=== PATIENT | male | born 1955 | race Caucasian/White ===

== ENCOUNTER → 2018-11-12 | Outpatient (CLI) | payer OTHER ==
[~2018-11-12] MED LIST: REGADENOSON 0.4 MG/5 ML SYR IV ONE
--- NOTE | 2018-11-13 16:41 | Cardiology Report ---
DATE OF STUDY: November 12, 2018 PROCEDURE INDICATIONS: Chest pain and shortness of breath, abnormal EKG. PROCEDURE PERFORMED: Lexiscan stress test. INTERPRETATION: At rest, heart rate was 60, blood pressure 147/82 after Lexiscan was administered. Heart rate siria to 76 beats per minute. Blood pressure decreased to 138/89. Resting EKG showed normal sinus rhythm with nonspecific repolarization abnormality and poor R-wave progression. After Lexiscan was administered, no significant S/T changes or arrhythmias were observed. Myocardial perfusion reveals a small sized fixed inferior wall and apical inferior segment moderate in severity perfusion defect. Gated images demonstrate mild global impairment of left ventricular systolic function with left ventricular ejection fraction of 48%. CONCLUSIONS 1. Normal hemodynamic response to Lexiscan stress. 2. Normal electrocardiographic response to Lexiscan stress. 3. Abnormal myocardial perfusion with inferior wall nontransmural scar and apical segment nontransmural scar. 4. 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 Job#: [id number] CA
== END ==
LOC: NM 09:17
PROVIDERS: ATTEND Internal Medicine Cardiovascular Disease
DX: R07.9 Chest pain, unspecified (principal); R94.31 Abnormal electrocardiogram [ECG] [EKG]; I50.9 Heart failure, unspecified
CPT/HCPCS: 78452; 93017; A9502; J2785

== ENCOUNTER → 2018-12-03 | Day surgery (SDC) | payer OTHER ==
[2018-11-30 10:56] LABS: BASOPHILS % 0.3 % (0.0-1.0); EOSINOPHILS # (AUTO) 0.3 (0.0-0.4); EOSINOPHILS % 3.3 % (0.0-6.0); HEMATOCRIT 38.5 % (38.2-49.6); HEMOGLOBIN 13.2 g/dL (14.0-18.0); LYMPHOCYTES # (AUTO) 1.9 (1.0-3.2); LYMPHOCYTES % 21.8 % (18.0-39.1); MEAN CORPUSCULAR HEMOGLOBIN 31.6 pg (28-32); MEAN CORPUSCULAR HGB CONC 34.3 g/dL (31-35); MEAN CORPUSCULAR VOLUME 92.1 fL (81-99); MONOCYTES # (AUTO) 0.8 (0.2-0.8); MONOCYTES % 9.1 % (4.4-11.3); NEUTROPHILS # (AUTO) 5.7 (2.1-6.9); NEUTROPHILS % 65.2 % (38.7-80.0); PLATELET COUNT 185 x10e3/uL (140-360); RED BLOOD COUNT 4.18 x10e6/uL (4.3-5.7); RED CELL DISTRIBUTION WIDTH 12.3 % (11.7-14.4)
[2018-11-30 11:06] LABS: INR 0.93; PARTIAL THROMBOPLASTIN TIME 29.9 seconds (23.8-35.5); PROTHROMBIN TIME 13.3 seconds (11.9-14.5)
[2018-11-30 11:13] LABS: ALANINE AMINOTRANSFERASE 24 IU/L (0-55); ALBUMIN 3.4 g/dL (3.5-5.0); ALBUMIN/GLOBULIN RATIO 1.3 (0.8-2.0); ALKALINE PHOSPHATASE 75 IU/L (40-150); BLOOD UREA NITROGEN 7 mg/dL (7-26); BUN/CREATININE RATIO 8 (6-25); CARBON DIOXIDE 31 mmol/L (22-29); CHLORIDE 103 mmol/L (98-107); CHOL/HDL RATIO 2.9 (3.9-4.7); CHOLESTEROL 96 MD/DL (0-199); CREATININE, SERUM 0.92 mg/dL (0.72-1.25); EST GLOMERULAR FILTRATION RATE > 60 ML/MIN (60-); GLUCOSE 97 mg/dL (74-118); HDL CHOLESTEROL 33 MG/DL (40-60); LDL CHOLESTEROL 51 MG/DL (60-130); SODIUM 142 mmol/L (136-145); TRIGLYCERIDES 62 MG/DL (0-149)
[2018-12-03] VITALS (11 sets, daily range): BP systolic 129–167; BP diastolic 71–88
[~2018-12-03] VITALS: Ht 182.9 cm; Wt 115.7 kg
[~2018-12-03] MED LIST changes: +ALBUTEROL0.63 MG/3 NEB; +ALPRAZOLAM1 MG PO; +AMLODIPINE BESYL5 MG PO; +ANORA ELLIPTA INH; +ASPIR 8181 MG PO; +ASPIRIN 325 MG TAB ONE; +CITALOPRAM HBR20 MG PO; +COUGH SYRU100 MG/5 M PO; +FENTANYL CITRATE/PF 100MCG/2 ML INJ ONE; +FUROSEMIDE40 MG PO; +HEPARIN SOD/SOD CHLORIDE 2,000 ML ONE; +IOPAMIDOL 370 MG/ML 200 ML INFUS..BTL INJ ONE; +ISOSORBIDE DINI20 MG PO; +LIDOCAINE HCL 1% LOCAL INJ 20 ML VIAL ONE; +LOSARTAN POTAS100 MG PO; +METOPROLOL TART50 MG PO; +MIDAZOLAM HCL 2 MG/2 ML VIAL ONE; +NORCO 5-325 TA1 EACH PO; +PRAVASTATIN SOD20 MG PO; +RANITIDINE HCL150 MG PO; -REGADENOSON 0.4 MG/5 ML SYR IV ONE; +SODIUM CHLORIDE 0.9% 1000ML 1,000 ML ONE; +TRAZODONE HCL50 MG PO; +VENTOLIN HFA18 GM INH
--- OUTSIDE RECORDS SUMMARY | 2018-12-03 10:17 | XMS REPORT | CCD ---
Author Author Auto Generated Organization [facility] Address Unknown Phone Unavailable Care Team Providers Care Waiter/Waitress Room Service Name Role Phone AlkaJayjay shah Wilberto CP Allergies, Adverse Reactions, Alerts Substance Reaction Status NKDA Active Problem List Condition Effective Dates Status Angina Resolved Depression Resolved HTN - Hypertension Resolved Smoker Active Medications Medication Instructions Start Date End Date Status morphine Sulfate 2 mg, 1 mL, Route: IVP, Drug form: 10/02/2013 10/04/2013 Discontinued INJ, Q6H, Dosing Weight 95.455, kg, PRN Chest Pain, Start date: 10/02/13 11:40:00, Stop date: 11/01/13 11:39:00(Same as:MORPhine Sulfate) hydrALAZINE 10 mg, 0.5 mL, Route: IV, Drug 10/02/2013 10/04/2013 Discontinued form: INJ, Q4H, Dosing Weight 95.455, kg, PRN Hypertension, Start date: 10/02/13 11:40:00, Duration: 30 day, Stop date: 11/01/13 11:39:00(Same as: Apresoline) metoprolol 5 mg/5 ml 2.5 mg, 2.5 mL, Route: IV, Drug 10/02/2013 10/04/2013 Discontinued INJ form: INJ, Q2H, Dosing Weight 95.455, kg, PRN Tachycardia, Start date: 10/02/13 11:40:00, Duration: 30 day, Stop date: 11/01/13 11:39:00(Same as: Lopressor) aspirin 325 mg 325 mg, 1 tab, Route: PO, Drug 10/03/2013 10/03/2013 Discontinued tablet, enteric form: ECTAB, Daily, Dosing Weight coated 95.455, kg, Start date: 10/03/13 9:00:00, Duration: 30 day, Stop date: 11/01/13 9:00:00(Do Not Crush) Do not crush or chew. Ativan 1 mg, 1 tab, Route: PO, Drug form: 10/03/2013 10/04/2013 Discontinued TAB, TID, Start date: 10/03/13 13:00:00, Duration: 30 day, Stop date: 11/02/13 9:00:00(Same as: Ativan) trazodone 50 mg oral 50 mg, 1 tab, Route: PO, Drug form: 10/02/2013 10/02/2013 Discontinued tablet TAB, Daily, Dosing Weight 95.455, kg, Start date: 10/02/13 9:00:00, Duration: 30 day, Stop date: 10/31/13 9:00:00(Same As: Desyrel) Pepcid 20 mg, Route: IV, ONCE, Dosing 10/02/2013 10/02/2013 Completed Weight 95.455, kg, Start date: 10/02/13 2:20:00, Stop date: 10/02/13 2:20:00 Celexa 20 mg, 1 tab, Route: PO, Drug form: 10/03/2013 10/04/2013 Discontinued TAB, Daily, Start date: 10/03/13 9:00:00, Duration: 30 day, Stop date: 11/01/13 9:00:00(Same As: Celexa) aspirin 81 mg 81 mg, 1 tab, PO, Daily, 100 tab, 10/03/2013 Ordered tablet, enteric Substitution Allowed, ECTAB coated losartan 100 mg oral 100 mg, 1 tab, PO, Daily, 90 tab, 10/03/2013 Ordered tablet Substitution Allowed, TAB metoprolol tartrate 50 mg, 1 tab, PO, BID, 180 tab, 10/03/2013 Ordered 50 mg oral tablet Substitution Allowed, TAB nitroglycerin 0.4 mg 0.4 mg, 1 tab, SL, Q5Min, PRN, 100 10/03/2013 Ordered sublingual tablet tab, Chest Pain, Substitution Allowed, TAB pravastatin 20 mg 20 mg, 1 tab, PO, Bedtime, 30 tab, 10/03/2013 Ordered oral tablet Substitution Allowed, TAB isosorbide 30 mg, 1 tab, PO, Daily, 30 tab, 10/03/2013 Ordered mononitrate 30 mg Substitution Allowed, ERTAB oral tablet, extended release trazodone 50 mg oral 100 mg, 1 tab, Route: PO, Drug 10/02/2013 10/02/2013 Canceled tablet form: TAB, Bedtime, Dosing Weight 95.455, kg, Start date: 10/02/13 21:00:00, Duration: 30 day, Stop date: 10/31/13 21:00:00(Same As: Desyrel) pravastatin 20 mg, 1 tab, Route: PO, Drug form: 10/02/2013 10/04/2013 Discontinued TAB, Bedtime, Dosing Weight 95.455, kg, Start date: 10/02/13 21:00:00, Duration: 30 day, Stop date: 10/31/13 21:00:00(Same as: Pravachol) Nitro-Dur 0.2 mg/hr 1 patch, Route: TOP, Drug form: 10/01/2013 10/02/2013 Completed transdermal film, ERFILM, ONCE, Dosing Weight 95.455, extended release kg, Start date: 10/01/13 23:48:00, Stop date: 10/01/13 23:48:00Apply only once for up to 12 hours in a 24 hour period (12 hours on and 12 hours off.)(Same as:Nitro-Dur,Deponit,Transderm Nitro) For topical use only."Remove old patch before application of new patch" LORAzepam 1 mg oral 1 mg, 1 tab, PO, Bedtime, 30 tab, 10/03/2013 Ordered tablet Substitution Allowed, TAB furosemide 20 mg 20 mg, 1 tab, PO, Daily, PRN, 90 10/03/2013 Ordered oral tablet tab, Edema, Substitution Allowed, TAB pravastatin 20 mg, 1 tab, Route: PO, Drug form: 10/02/2013 10/02/2013 Canceled TAB, Bedtime, Dosing Weight 95.455, kg, Start date: 10/02/13 21:00:00, Duration: 30 day, Stop date: 10/31/13 21:00:00(Same as: Pravachol) metoprolol extended 50 mg, 1 tab, Route: PO, Drug form: 10/02/2013 10/02/2013 Discontinued release ERTAB, Daily, Start date: 10/02/13 9:00:00, Duration: 30 day, Stop date: 10/31/13 9:00:00(Same as: Toprol XL) May split tab, but do not crush. albuterol-ipratropiu 3 mL, Route: NEB, Drug Form: SOLN, 10/03/2013 10/04/2013 Discontinued m 2.5-0.5 mg Dosing Weight 95.455, kg, RQID, inhalation solution Start date: 10/03/13 15:00:00, Duration: 30 day, Stop date: 11/02/13 11:00:00(Same as: Duoneb) losartan 100 mg, 2 tab, Route: PO, Drug 10/02/2013 10/04/2013 Discontinued form: TAB, Daily, Dosing Weight 95.455, kg, Start date: 10/02/13 9:00:00, Duration: 30 day, Stop date: 10/31/13 9:00:00(Same as: Cozaar) aspirin 325 mg, 1 tab, Route: PO, Drug 10/02/2013 10/02/2013 Completed form: TAB, ONCE, Dosing Weight 95.455, kg, Priority: STAT, Start date: 10/02/13 4:03:00, Stop date: 10/02/13 4:03:00Take with food. metoprolol tartrate 50 mg, 1 tab, Route: PO, Drug form: 10/02/2013 10/04/2013 Discontinued TAB, Q12H, Dosing Weight 95.455, kg, Start date: 10/02/13 21:00:00, Duration: 30 day, Stop date: 11/01/13 9:00:00(Same as: Lopressor) LORAzepam 1 mg, 1 tab, Route: PO, Drug form: 10/02/2013 10/03/2013 Discontinued TAB, Bedtime, Dosing Weight 95.455, kg, Start date: 10/02/13 21:00:00, Duration: 7 day, Stop date: 10/08/13 21:00:00(Same as: Ativan) citalopram 20 mg 20 mg, 1 tab, PO, Daily, 30 tab, 10/04/2013 Ordered oral tablet Substitution Allowed, TAB furosemide 20 mg 20 mg, 1 tab, Route: PO, Drug form: 10/03/2013 10/04/2013 Discontinued oral tablet TAB, Daily, Dosing Weight 95.455, kg, PRN Edema, Start date: 10/03/13 14:20:00, Duration: 30 day, Stop date: 11/02/13 14:19:00(Same as: Lasix) May cause GI upset. Give with food or milk. albuterol CFC free 2 puff, INHALER, RQ6H, 1 box, 10/04/2013 Ordered 90 mcg/inh Substitution Allowed, Maintenance, inhalation aerosol AERO/A with adapter trazodone 100 mg 100 mg, 1 tab, PO, Bedtime, 30 tab, 10/04/2013 Ordered oral tablet Substitution Allowed, TAB Ativan 1 mg, Route: PO, Drug form: TAB, 10/02/2013 10/02/2013 Completed ONCE, Dosing Weight 95.455, kg, Priority: STAT, Start date: 10/02/13 3:25:00, Stop date: 10/02/13 3:25:00 aspirin 325 mg 325 mg, 1 tab, PO, Daily, 30 tab, 10/02/2013 10/03/2013 Discontinued tablet, enteric Substitution Allowed, ECTAB coated metoprolol tartrate 50 mg, 1 tab, PO, BID, Substitution 10/02/2013 10/03/2013 Discontinued 50 mg oral tablet Allowed nitroglycerin 0.4 mg 0.4 mg, 1 tab, Route: SL, Drug 10/02/2013 10/04/2013 Discontinued sublingual tablet form: TAB, Q5Min, PRN Chest Pain, Start date: 10/02/13 4:18:00, Duration: 30 day, Stop date: 11/01/13 4:17:00(Same as:Nitroquick, Nitrostat)"Do Not Crush" Sublingual tablet atropine 0.5 mg, 5 mL, Route: IVP, Drug 10/02/2013 10/04/2013 Discontinued form: INJ, PRN, PRN Bradycardia, Start date: 10/02/13 4:18:00, Duration: 30 day, Stop date: 11/01/13 4:17:00 Tylenol 325 mg, 1 tab, Route: PO, Drug 10/03/2013 10/04/2013 Discontinued form: TAB, Q6H, PRN Other -See Comment, Start date: 10/03/13 11:11:00, Duration: 30 day, Stop date: 11/02/13 11:10:00Do not exceed 4 gm/day. (Same as: Tylenol) pneumococcal 0.5 ml, Route: IM, Drug Form: INJ, 09/30/2013 09/30/2013 Completed 23-valent vaccine Start date: 09/30/13 9:00:00, Stop date: 09/30/13 9:00:00 OxyIR 10 mg, 2 tab, Route: PO, Drug form: 10/03/2013 10/04/2013 Discontinued TAB, Q6H, PRN Pain Score 7-10, Start date: 10/03/13 11:11:00, Duration: 30 day, Stop date: 11/02/13 11:10:00(Same as: OxyIR) albuterol 2 puff, Route: INHALER, Drug Form: 10/02/2013 10/04/2013 Discontinued AERO/A, RQ6H, Start date: 10/02/13 20:00:00, Duration: 30 day, Stop date: 11/01/13 14:00:00Albuterol 90 microgram/inh 8gm HFA Same as: Ventolin Proventil albuterol-ipratropiu 3 ml, Route: NEB, Drug Form: SOLN, 10/02/2013 10/04/2013 Discontinued m 2.5-0.5 mg Dosing Weight 95.455, kg, RQ4H, PRN inhalation solution Wheezing, Start date: 10/02/13 11:41:00, Duration: 30 day, Stop date: 11/01/13 11:40:00(Same as: Duoneb) pravastatin 20 mg 20 mg, 1 tab, PO, Bedtime, 30 tab, 10/02/2013 10/03/2013 Discontinued oral tablet Substitution Allowed, TAB Imdur 30 mg, 1 tab, Route: PO, Drug form: 10/03/2013 10/04/2013 Discontinued ERTAB, Daily, Start date: 10/03/13 9:00:00, Duration: 30 day, Stop date: 11/01/13 9:00:00(Same as:Imdur)"Do Not Crush" Take on empty stomach/ full glass of water. Do not crush Tylenol 650 mg, 2 tab, Route: PO, Drug 10/02/2013 10/04/2013 Discontinued form: TAB, Q4H, PRN Pain Score 1-3, Start date: 10/02/13 14:18:00, Duration: 30 day, Stop date: 11/01/13 14:17:00Do not exceed 4 gm/day. (Same as: Tylenol) enoxaparin 40 mg, 0.4 mL, Route: SUB-Q, Drug 10/02/2013 10/04/2013 Discontinued form: INJ, [id number], Dosing Weight 95.455, kg, Start date: 10/02/13 11:00:00, Duration: 30 day, Stop date: 10/31/13 11:00:00(Same as: Lovenox) potassium chloride 40 mEq, 2 tab, Route: PO, Drug 10/02/2013 10/02/2013 Completed form: ERTAB, Q4H, Dosing Weight 95.455, kg, Priority: NOW, Start date: 10/02/13 13:28:00, Duration: 2 doses or times, Stop date: 10/02/13 18:00:00(Same as: K-Dur 20)"Do Not Crush" With food and full glass of water acetaminophen-hydroc 1 tab, Route: PO, Drug Form: TAB, 10/02/2013 10/04/2013 Discontinued odone 325 mg-10 mg Q6H, PRN Pain Score 4-6, Start oral tablet date: 10/02/13 14:18:00, Duration: 30 day, Stop date: 11/01/13 14:17:00Do not exceed 4gm/day of acetaminophen. (Same as: [place] 325/10) trazodone 100 mg 100 mg, 1 tab, Route: PO, Drug 10/03/2013 10/04/2013 Discontinued oral tablet form: TAB, Bedtime, Dosing Weight 95.455, kg, Start date: 10/03/13 21:00:00, Duration: 30 day, Stop date: 11/01/13 21:00:00(Same As: Desyrel) cholecalciferol 5,000 IntlUnit, 5 tab, Route: PO, 10/03/2013 10/04/2013 Discontinued Drug form: TAB, Daily, Dosing Weight 95.455, kg, Start date: 10/03/13 9:00:00, Duration: 30 day, Stop date: 11/01/13 9:00:00Same as : Vitamin D3 furosemide 20 mg 20 mg, 1 tab, Route: PO, Drug form: 10/02/2013 10/04/2013 Discontinued oral tablet TAB, After Lunch, Dosing Weight 95.455, kg, Start date: 10/02/13 12:30:00, Duration: 30 day, Stop date: 10/31/13 12:30:00(Same as: Lasix) May cause GI upset. Give with food or milk. Nitrostat 0.4 mg 0.4 mg, 1 tab, Route: SL, Drug 10/02/2013 10/02/2013 Deleted sublingual tablet form: TAB, Q5Min, Dosing Weight 95.455, kg, PRN Chest Pain, Start date: 10/02/13 11:40:00, Duration: 3 doses or times, Stop date: Limited # of times aspirin 81 mg 81 mg, 1 tab, Route: PO, Drug form: 10/03/2013 10/04/2013 Discontinued tablet, enteric ECTAB, Daily, Dosing Weight 95.455, coated kg, Start date: 10/03/13 9:00:00, Duration: 30 day, Stop date: 11/01/13 9:00:00Do not crush or chew.(Same As: Ecotrin) Immunizations Vaccine Date Status pneumococcal 23-valent vaccine 09/30/2013 Auth (Verified) Vital Signs Most recent to oldest [Reference Range]: 1 2 3 Height 185.42 cm (10/02/2013 03:47:00) 185.42 cm (10/01/2013 21:35:00) Temperature Oral [96.4-99.1 DegF] 99.2 DegF *HI* (10/04/2013 12:00:00) 99 DegF (10/04/2013 08:00:00) 98.7 DegF (10/04/2013 04:22:00) Systolic Blood Pressure [90-140 mmHg] 114 mmHg (10/04/2013 12:00:00) 135 mmHg (10/04/2013 08:00:00) 138 mmHg (10/04/2013 04:22:00) Diastolic Blood Pressure [60-90 mmHg] 68 mmHg (10/04/2013 12:00:00) 69 mmHg (10/04/2013 08:00:00) 83 mmHg (10/04/2013 04:22:00) Respiratory Rate [14-20 BRMIN] 18 BRMIN (10/04/2013 12:00:00) 18 BRMIN (10/04/2013 08:00:00) 16 BRMIN (10/04/2013 07:19:00) Peripheral Pulse Rate [60-100 bpm] 77 bpm (10/04/2013 12:00:00) 72 bpm (10/04/2013 08:00:00) 73 bpm (10/04/2013 04:22:00) Weight 95.455 kg (10/02/2013 03:47:00) 95.455 kg (10/01/2013 21:35:00) Results CHEMISTRY Most recent to oldest [Reference Range]: 1 2 3 4 Sodium Lvl [135-145 mEq/L] 135 mEq/L (10/04/2013 03:47:00) 138 mEq/L (10/03/2013 05:37:00) 136 mEq/L (10/02/2013 10:47:00) Potassium Lvl [3.5-5.1 mEq/L] 4.1 mEq/L (10/04/2013 03:47:00) 4.2 mEq/L (10/03/2013 05:37:00) 3.4 mEq/L *LOW* (10/02/2013 10:47:00) Chloride Lvl [95-109 mEq/L] 101 mEq/L (10/04/2013 03:47:00) 105 mEq/L (10/03/2013 05:37:00) 102 mEq/L (10/02/2013 10:47:00) CO2 [24-32 mEq/L] 28 mEq/L (10/04/2013 03:47:00) 26 mEq/L (10/03/2013 05:37:00) 25 mEq/L (10/02/2013 10:47:00) AGAP [10.0-20.0 mEq/L] 10.1 mEq/L (10/04/2013 03:47:00) 11.2 mEq/L (10/03/2013 05:37:00) 12.4 mEq/L (10/02/2013 10:47:00) Creatinine Lvl [0.5-1.4 mg/dL] 0.9 mg/dL (10/04/2013 03:47:00) 0.8 mg/dL (10/03/2013 05:37:00) 0.8 mg/dL (10/02/2013 10:47:00) 0.8 mg/dL (10/02/2013 10:47:00) eGFR 93 mL/min/1.73m2 1 *NA* (10/04/2013 03:47:00) 97 mL/min/1.73m2 2 *NA* (10/03/2013 05:37:00) 97 mL/min/1.73m2 3 *NA* (10/02/2013 10:47:00) 97 mL/min/1.73m2 4 *NA* (10/02/2013 10:47:00) BUN [7-22 mg/dL] 13 mg/dL (10/04/2013 03:47:00) 10 mg/dL (10/03/2013 05:37:00) 9 mg/dL (10/02/2013 10:47:00) B/C Ratio [6-25] 12 (10/03/2013 05:37:00) 11 (10/02/2013 10:47:00) 11 (10/01/2013 22:45:00) Glucose Lvl [70-99 mg/dL] 87 mg/dL 5 (10/04/2013 03:47:00) 98 mg/dL 6 (10/03/2013 05:37:00) 89 mg/dL 7 (10/02/2013 10:47:00) Total Protein [6.4-8.4 g/dL] 5.7 g/dL *LOW* (10/03/2013 05:37:00) 6.2 g/dL *LOW* (10/02/2013 10:47:00) 7.3 g/dL (10/01/2013 22:45:00) Albumin Lvl [3.5-5.0 g/dL] 2.9 g/dL *LOW* (10/03/2013 05:37:00) 3.0 g/dL *LOW* (10/02/2013 10:47:00) 3.6 g/dL (10/01/2013 22:45:00) Globulin [2.0-4.0 g/dL] 2.8 g/dL (10/03/2013 05:37:00) 3.2 g/dL (10/02/2013 10:47:00) 3.7 g/dL (10/01/2013 22:45:00) A/G Ratio [0.7-1.6] 1.0 (10/03/2013 05:37:00) 0.9 (10/02/2013 10:47:00) 1.0 (10/01/2013 22:45:00) Calcium Lvl [8.5-10.5 mg/dL] 8.4 mg/dL *LOW* (10/04/2013 03:47:00) 8.3 mg/dL *LOW* (10/03/2013 05:37:00) 8.2 mg/dL *LOW* (10/02/2013 10:47:00) Phosphorus [2.5-4.5 mg/dL] 3.4 mg/dL (10/02/2013 10:44:00) Magnesium Lvl [1.8-2.4 mg/dL] 1.9 mg/dL (10/02/2013 10:44:00) ALT [0-65 unit/L] 88 unit/L *HI* (10/03/2013 05:37:00) 74 unit/L *HI* (10/02/2013 10:47:00) 76 unit/L *HI* (10/01/2013 22:45:00) AST [0-37 unit/L] 57 unit/L *HI* (10/03/2013 05:37:00) 57 unit/L *HI* (10/02/2013 10:47:00) 52 unit/L *HI* (10/01/2013 22:45:00) Alk Phos [39-136 unit/L] 66 unit/L (10/03/2013 05:37:00) 71 unit/L (10/02/2013 10:47:00) 88 unit/L (10/01/2013 22:45:00) Bili Total [0.2-1.3 mg/dL] 0.5 mg/dL (10/03/2013 05:37:00) 0.4 mg/dL (10/02/2013 10:47:00) 0.4 mg/dL (10/01/2013 22:45:00) Vitamin D, 25-OH, Total [30-100 ng/mL] 18 ng/mL 8 *LOW* (10/02/2013 10:44:00) CK MB [0.5-3.6 ng/mL] 1.7 ng/mL (10/01/2013 22:45:00) Troponin-I [0.00-0.40 ng/mL] <0.02 ng/mL (10/04/2013 03:47:00) 0.04 ng/mL (10/01/2013 22:45:00) BNP [<=100 pg/mL] 140 pg/mL 9 *HI* (10/02/2013 10:47:00) 147 pg/mL 10 *HI* (10/01/2013 22:45:00) pH Art [7.35-7.45] 7.43 (10/02/2013 12:35:23) pCO2 Art [35-45 mmHg] 38 mmHg (10/02/2013 12:35:23) pO2 Art [80-100 mmHg] 75 mmHg *LOW* (10/02/2013 12:35:23) HCO3 Art [22-26 mMol/L] 25 mMol/L (10/02/2013 12:35:23) BE Art [-2-2 mMol/L] 1 mMol/L (10/02/2013 12:35:23) O2 Sat Art [95.0-100.0 %] 95.3 % (10/02/2013 12:35:23) Site Art Left Rad (10/02/2013 12:35:23) Temp Art 37.0 DegC *NA* (10/02/2013 12:35:23) Flow Art rom air *NA* (10/02/2013 12:35:23) FiO2 Art 21.0 *NA* (10/02/2013 12:35:23) 1Result Comment: The eGFR is calculated using the CKD-EPI formula. In most young, healthy individuals the eGFR will be >90 mL/min/1.73m2. The eGFR declines with age. An eGFR of 60-89 may be normal in some populations, particularly the elderly, for whom the CKD-EPI formula has not been extensively validated. Use of the eGFR is not recommended in the following populations: Individuals with unstable creatinine concentrations, including patients and those with serious co-morbid conditions. Patients with extremes in muscle mass or diet. The data above are obtained from the National Kidney Disease Education Program ( NKDEP) which additionally recommends that when the eGFR is used in patients with extremes of body mass index for purposes of drug dosing, the eGFR should be mul tiplied by the estimated BMI. 2Result Comment: The eGFR is calculated using the CKD-EPI formula. In most young, healthy individuals the eGFR will be >90 mL/min/1.73m2. The eGFR declines with age. An eGFR of 60-89 may be normal in some populations, particularly the elderly, for whom the CKD-EPI formula has not been extensively validated. Use of the eGFR is not recommended in the following populations: Individuals with unstable creatinine concentrations, including patients and those with serious co-morbid conditions. Patients with extremes in muscle mass or diet. The data above are obtained from the National Kidney Disease Education Program ( NKDEP) which additionally recommends that when the eGFR is used in patients with extremes of body mass index for purposes of drug dosing, the eGFR should be mul tiplied by the estimated BMI. 3Result Comment: The eGFR is calculated using the CKD-EPI formula. In most young, healthy individuals the eGFR will be >90 mL/min/1.73m2. The eGFR declines with age. An eGFR of 60-89 may be normal in some populations, particularly the elderly, for whom the CKD-EPI formula has not been extensively validated. Use of the eGFR is not recommended in the following populations: Individuals with unstable creatinine concentrations, including patients and those with serious co-morbid conditions. Patients with extremes in muscle mass or diet. The data above are obtained from the National Kidney Disease Education Program ( NKDEP) which additionally recommends that when the eGFR is used in patients with extremes of body mass index for purposes of drug dosing, the eGFR should be mul tiplied by the estimated BMI. 4Result Comment: The eGFR is calculated using the CKD-EPI formula. In most young, healthy individuals the eGFR will be >90 mL/min/1.73m2. The eGFR declines with age. An eGFR of 60-89 may be normal in some populations, particularly the elderly, for whom the CKD-EPI formula has not been extensively validated. Use of the eGFR is not recommended in the following populations: Individuals with unstable creatinine concentrations, including patients and those with serious co-morbid conditions. Patients with extremes in muscle mass or diet. The data above are obtained from the National Kidney Disease Education Program ( NKDEP) which additionally recommends that when the eGFR is used in patients with extremes of body mass index for purposes of drug dosing, the eGFR should be mul tiplied by the estimated BMI. 5Interpretive Data: Adult reference range values reflect the clinical guidelines of the [place] [employer]. 6Interpretive Data: Adult reference range values reflect the clinical guidelines of the [place] [employer]. 7Interpretive Data: Adult reference range values reflect the clinical guidelines of the [place] [employer]. 8Interpretive Data: Reference range is based on recommendations in the Endocrine Society Clinical Practice Guideline (J Clin Endocrinol Metab 2011;96:3872-3747) 9Interpretive Data: Elevated results are in line with increasing severity of congestive heart failure. Minor elevations between 100 and 300 may be seen with Myocardial Ischemia, Sodium retaining drugs, and compensated/treated heart failure. 10Interpretive Data: Elevated results are in line with increasing severity of congestive heart failure. Minor elevations between 100 and 300 may be seen with Myocardial Ischemia, Sodium retaining drugs, and compensated/treated heart failure. HEMATOLOGY Most recent to oldest [Reference Range]: 1 2 3 4 WBC [3.7-10.4 K/CMM] 6.5 K/CMM (10/04/2013 03:47:00) 5.4 K/CMM (10/03/2013 05:37:00) 4.9 K/CMM (10/02/2013 10:47:00) RBC [4.70-6.10 M/CMM] 3.73 M/CMM *LOW* (10/04/2013 03:47:00) 3.62 M/CMM *LOW* (10/03/2013 05:37:00) 3.58 M/CMM *LOW* (10/02/2013 10:47:00) Hgb [14.0-18.0 g/dL] 11.7 g/dL *LOW* (10/04/2013 03:47:00) 11.5 g/dL *LOW* (10/03/2013 05:37:00) 11.2 g/dL *LOW* (10/02/2013 10:47:00) Hct [42.0-54.0 %] 35.5 % *LOW* (10/04/2013 03:47:00) 34.2 % *LOW* (10/03/2013 05:37:00) 33.6 % *LOW* (10/02/2013 10:47:00) MCV [80.0-94.0 fL] 95.3 fL *HI* (10/04/2013 03:47:00) 94.3 fL *HI* (10/03/2013 05:37:00) 93.7 fL (10/02/2013 10:47:00) MCH [27.0-31.0 pg] 31.4 pg *HI* (10/04/2013 03:47:00) 31.8 pg *HI* (10/03/2013 05:37:00) 31.2 pg *HI* (10/02/2013 10:47:00) MCHC [32.0-36.0 g/dL] 33.0 g/dL (10/04/2013 03:47:00) 33.7 g/dL (10/03/2013 05:37:00) 33.3 g/dL (10/02/2013 10:47:00) RDW [11.5-14.5 %] 13.9 % (10/04/2013 03:47:00) 13.8 % (10/03/2013 05:37:00) 13.8 % (10/02/2013 10:47:00) Platelet [133-450 K/CMM] 189 K/CMM (10/04/2013 03:47:00) 177 K/CMM (10/03/2013 05:37:00) 166 K/CMM (10/02/2013 10:47:00) 174 K/CMM (10/02/2013 10:47:00) MPV [7.4-10.4 fL] 7.8 fL (10/04/2013 03:47:00) 7.6 fL (10/03/2013 05:37:00) 7.8 fL (10/02/2013 10:47:00) Segs [45.0-75.0 %] 57.0 % (10/04/2013 03:47:00) 63.8 % (10/03/2013 05:37:00) 58.0 % (10/02/2013 10:47:00) Lymphocytes [20.0-40.0 %] 25.2 % (10/04/2013 03:47:00) 19.2 % *LOW* (10/03/2013 05:37:00) 24.6 % (10/02/2013 10:47:00) Monocytes [2.0-12.0 %] 13.7 % *HI* (10/04/2013 03:47:00) 13.3 % *HI* (10/03/2013 05:37:00) 13.9 % *HI* (10/02/2013 10:47:00) Eosinophils [0.0-4.0 %] 3.4 % (10/04/2013 03:47:00) 3.1 % (10/03/2013 05:37:00) 2.9 % (10/02/2013 10:47:00) Basophils [0.0-1.0 %] 0.7 % (10/04/2013 03:47:00) 0.6 % (10/03/2013 05:37:00) 0.6 % (10/02/2013 10:47:00) Segs-Bands # [1.5-8.1 K/CMM] 3.7 K/CMM (10/04/2013 03:47:00) 3.5 K/CMM (10/03/2013 05:37:00) 2.8 K/CMM (10/02/2013 10:47:00) Lymphocytes # [1.0-5.5 K/CMM] 1.6 K/CMM (10/04/2013 03:47:00) 1.0 K/CMM (10/03/2013 05:37:00) 1.2 K/CMM (10/02/2013 10:47:00) Monocytes # [0.0-0.8 K/CMM] 0.9 K/CMM *HI* (10/04/2013 03:47:00) 0.7 K/CMM (10/03/2013 05:37:00) 0.7 K/CMM (10/02/2013 10:47:00) Eosinophils # [0.0-0.5 K/CMM] 0.2 K/CMM (10/04/2013 03:47:00) 0.2 K/CMM (10/03/2013 05:37:00) 0.1 K/CMM (10/02/2013 10:47:00) Basophils # [0.0-0.2 K/CMM] 0.0 K/CMM (10/04/2013 03:47:00) 0.0 K/CMM (10/03/2013 05:37:00) 0.0 K/CMM (10/02/2013 10:47:00) PTT [22.9-35.8 seconds] 29.1 seconds 11 (10/02/2013 10:47:00) 11Interpretive Data: Heparin Therapeutic Range: 57 - 92 Seconds IMMUNOLOGY Most recent to oldest [Reference Range]: 1 2 3 4 CRP, High Sensitivity 0.9 mg/L 12 *NA* (10/02/2013 10:44:00) Homocyst Tot [3.7-13.9 uMol/L] 9.8 uMol/L (10/02/2013 10:44:00) 12Interpretive Data: Low Risk: <1.0 mg/L Average Risk: 1.0 - 3.0 mg/L High Risk: >3.0 mg/L Inflammation: >10.0 mg/L Procedures Procedures Date Related Diagnosis Cardiac catheterization
--- OUTSIDE RECORDS SUMMARY | 2018-12-03 10:18 | XMS REPORT ---
Author Author [facility] Organization [facility] Address Unknown Phone Unavailable Care Team Providers Care General Manager Road Production Name Role Phone Jean Paul VALE Unavailable Unavailable Payers Payer Name Policy Type Policy Number Effective Date Expiration Date Problems This patient has no known problems. Allergies, Adverse Reactions, Alerts Allergy Name Allergy Type Status Severity Reaction(s) Onset Date Inactive Date Treating Clinician Comments No Known Allergies DA Active U 2016-10-03 00:00:00 Medications This patient has no known medications. Results Test Description Test Time Test Comments Text Results Atomic Results Result Comments Stress Test - Treadmill ONLY 2018-11-13 16:16:00 [place] [address] Patient Name : GUERO MOURA MR #: [id number] : 1955 Age/Sex: 63/M Adm Physician : BERLIN VALE MD Admit Date : Location : [place] Room/Bed : ____ REPORT: Cardiology Report DATE OF STUDY: November 12, 2018 PROCEDURE INDICATIONS: Chest pain and shortness of breath, abnormal EKG. PROCEDURE PERFORMED: Lexiscan stress test. INTERPRETATION: At rest, heart rate was 60, blood pressure 147/82 after Lexiscan was administered. Heart rate siria to 76 beats per minute. Blood pressure decreased to 138/89. Resting EKG showed normal sinus rhythm with nonspecific repolarization abnormality and poor R-wave progression. After Lexiscan was administered, no significant S/T changes or arrhythmias were observed. Myocardial perfusion reveals a small sized fixed inferior wall and apical inferior segment moderate in severity perfusion defect. Gated images demonstrate mild global impairment of left ventricular systolic function with left ventricular ejection fraction of 48%. CONCLUSIONS 1. Normal hemodynamic response to Lexiscan stress. 2. Normal electrocardiographic response to Lexiscan stress. 3. Abnormal myocardial perfusion with inferior wall nontransmural scar and apical segment nontransmural scar. 4. 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 Job#: [id number] RI Signature Date Dictated By: BERLIN ROSALES MD Transcribed By: SMEDS on 11/13/18 <Electronically signed by BERLIN ROSALES MD><<Signature on File>>11/14/18 1121 COPY TO:
--- OUTSIDE RECORDS SUMMARY | 2018-12-03 10:18 | XMS REPORT | CCD ---
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 Use with 100ml NS mini-bag PLUS and infuse over 30 min atropine 0.5 mg, 5 mL, Route: IVP, Drug 09/28/2013 10/01/2013 Discontinued form: INJ, PRN, PRN Bradycardia, Start date: 09/28/13 2:17:00, Duration: 30 day, Stop date: 10/28/13 2:16:00 nitroglycerin 0.4 mg 0.4 mg, 1 tab, Route: SL, Drug 09/28/2013 10/01/2013 Discontinued sublingual tablet form: TAB, Q5Min, PRN Chest Pain, Start date: 09/28/13 2:17:00, Duration: 30 day, Stop date: 10/28/13 2:16:00(Same as:Nitroquick, Nitrostat)"Do Not Crush" Sublingual tablet losartan 100 mg oral 100 mg, 1 tab, PO, Daily, 30 tab, 09/27/2013 10/03/2013 Discontinued tablet Substitution Allowed, TAB trazodone 50 mg oral Bedtime, Substitution Allowed 09/27/2013 Ordered tablet metoprolol 25 mg 25 mg, PO, BID, 30 tab, 09/27/2013 10/01/2013 Discontinued oral tablet, Substitution Allowed extended release Craig 5/325 oral 1 tab, PO, Q4-6H, PRN, 30 tab, 09/27/2013 Ordered tablet Substitution Allowed, Maintenance NS (Bolus) IV 1000 1,000 mL, Rate: 1,000 ml/hr, Infuse 09/27/2013 09/27/2013 Completed mL over: 1 hr, Route: IV, Dosing Weight 81.818 kg, Total Volume: 1,000, Priority: STAT, Start date: 09/27/13 22:49:00, Duration: 1 doses or times, Stop date: 09/27/13 23:48:00, Bolus Dose Bolus Dose Lopressor 25 mg, 1 tab, Route: PO, Drug form: 09/28/2013 10/01/2013 Discontinued TAB, Q6H-02, Start date: 09/28/13 14:00:00, Duration: 30 day, Stop date: 10/28/13 8:00:00(Same as: Lopressor) if OK with if OK with Neurologist, start 09/28/2013 09/28/2013 Canceled Neurologist, start Lovenox 1mg/kg SQ q12h, 1 attn Lovenox 1mg/kg SQ notice, Drug form: MISC, Route: q12h MISC, Q8H, 09/28/13 8:00:00, Duration: 30 day, Stop date: 10/28/13 0:00:00 trazodone 50 mg oral 50 mg, 1 tab, Route: PO, Drug form: 09/28/2013 10/01/2013 Discontinued tablet TAB, Bedtime, Dosing Weight 95.455, kg, Start date: 09/28/13 21:00:00, Duration: 30 day, Stop date: 10/27/13 21:00:00(Same As: Desyrel) Craig 5/325 oral 1 tab, Route: PO, Drug Form: TAB, 09/28/2013 10/01/2013 Discontinued tablet Dosing Weight 95.455, kg, Q6H, PRN as needed for pain, Start date: 09/28/13 8:30:00, Duration: 30 day, Stop date: 10/28/13 8:29:00(Same as: Craig 325/5) Do not exceed 4gm/day of acetaminophen. losartan 100 mg, 2 tab, Route: PO, Drug 09/28/2013 10/01/2013 Discontinued form: TAB, Daily, Dosing Weight 95.455, kg, Start date: 09/28/13 9:00:00, Duration: 30 day, Stop date: 10/27/13 9:00:00(Same as: Cozaar) aspirin 324 mg, Route: PO, ONCE, Dosing 09/27/2013 09/27/2013 Completed Weight 81.818, kg, Priority: STAT, Start date: 09/27/13 21:14:00, Stop date: 09/27/13 21:14:00 Saline Flush 0.9% 5 mL, Route: IVP, Drug Form: INJ, 09/27/2013 09/28/2013 Discontinued Dosing Weight 81.818, kg, Q8H, PRN Line Flush, Start date: 09/27/13 21:14:00, Duration: 30 day, Stop date: 10/27/13 21:13:00, Administer at least once every 8 hours Administer at least once every 8 hoursSame as: BD Posiflush Sterile Lovenox 95.455 mg, Route: SUB-Q, Drug form: 09/28/2013 09/28/2013 Discontinued INJ, [id number], Dosing Weight 95.455, kg, give if ok with neurologist, Start date: 09/28/13 6:00:00, Duration: 30 day, Stop date: 10/27/13 18:00:00 pravastatin 20 mg, 1 tab, Route: PO, Drug form: 09/28/2013 09/28/2013 Canceled TAB, Bedtime, Dosing Weight 95.455, kg, Start date: 09/28/13 21:00:00, Duration: 30 day, Stop date: 10/27/13 21:00:00(Same as: Pravachol) pneumococcal 0.5 ml, Route: IM, Drug Form: INJ, 09/30/2013 09/30/2013 Completed 23-valent vaccine Daily, Start date: 09/30/13 9:00:00, Duration: 1 doses or times, Stop date: 09/30/13 9:00:00(Same as: Pneumovax 23) Refrigerate metoprolol tartrate 12.5 mg, 0.5 tab, Route: PO, Drug 09/28/2013 09/28/2013 Discontinued form: TAB, BID, Dosing Weight 95.455, kg, HOLD for sbp <110 or HR < 60, Start date: 09/28/13 9:00:00, Duration: 30 day, Stop date: 10/27/13 21:00:00(Same as: Lopressor) pravastatin 20 mg 20 mg, 1 tab, PO, Bedtime, 30 tab, 10/01/2013 10/03/2013 Discontinued oral tablet Substitution Allowed, TAB Saline Flush 0.9% 5 ml, Route: IVP, Drug Form: INJ, 09/29/2013 09/29/2013 Deleted Dosing Weight 95.455, kg, Q12H, Start date: 09/29/13 21:00:00, Duration: 30 day, Stop date: 10/29/13 9:00:00 Saline Flush 0.9% 5 ml, Route: IVP, Drug Form: INJ, 09/29/2013 09/29/2013 Deleted Dosing Weight 95.455, kg, PRN, PRN Line Flush, Start date: 09/29/13 12:49:00, Duration: 30 day, Stop date: 10/29/13 12:48:00 metoprolol tartrate 50 mg, 1 tab, PO, BID, 60 tab, 10/01/2013 10/03/2013 Discontinued 50 mg oral tablet Substitution Allowed, TAB ondansetron 4 mg, Route: IVP, Drug form: INJ, 09/28/2013 09/28/2013 Completed ONCE, Dosing Weight 81.818, kg, Start date: 09/28/13 0:40:00, Stop date: 09/28/13 0:40:00 albuterol-ipratropiu 3 ml, Route: NEB, Drug Form: SOLN, 09/30/2013 10/01/2013 Discontinued m 2.5-0.5 mg Dosing Weight 95.455, kg, RQ4H, PRN inhalation solution Wheezing, Start date: 09/30/13 17:11:00, Duration: 30 day, Stop date: 10/30/13 17:10:00(Same as: Duoneb) aspirin 325 mg 325 mg, 1 tab, Route: PO, Drug 09/28/2013 10/01/2013 Discontinued tablet, enteric form: ECTAB, Daily, Dosing Weight coated 81.818, kg, Start date: 09/28/13 9:00:00, Duration: 30 day, Stop date: 10/27/13 9:00:00(Do Not Crush) Do not crush or chew. Saline Flush 0.9% 5 ml, Route: IVP, Drug Form: INJ, 09/28/2013 10/01/2013 Discontinued Dosing Weight 81.818, kg, PRN, PRN Line Flush, Start date: 09/28/13 2:12:00, Duration: 30 day, Stop date: 10/28/13 2:11:00Same as: BD Posiflush Sterile Saline Flush 0.9% 5 ml, Route: IVP, Drug Form: INJ, 09/28/2013 10/01/2013 Discontinued Dosing Weight 81.818, kg, Q12H, Start date: 09/28/13 9:00:00, Duration: 30 day, Stop date: 10/27/13 21:00:00Same as: BD Posiflush Sterile aspirin 325 mg 325 mg, 1 tab, PO, Daily, 30 tab, 10/01/2013 10/03/2013 Discontinued tablet, enteric Substitution Allowed, ECTAB coated furosemide 20 mg 20 mg, 1 tab, Route: PO, Drug form: 10/01/2013 10/01/2013 Discontinued oral tablet TAB, After Lunch, Dosing Weight 95.455, kg, Start date: 10/01/13 12:30:00, Duration: 30 day, Stop date: 10/30/13 12:30:00(Same as: Lasix) May cause GI upset. Give with food or milk. cholecalciferol 5,000 IntlUnit, 5 tab, Route: PO, 10/01/2013 10/01/2013 Discontinued Drug form: TAB, Daily, Dosing Weight 95.455, kg, Start date: 10/01/13 9:00:00, Duration: 30 day, Stop date: 10/30/13 9:00:00Same as : Vitamin D3 potassium chloride 20 mEq, 1 tab, Route: PO, Drug 10/01/2013 10/01/2013 Discontinued 20 mEq oral tablet, form: ERTAB, Daily, Dosing Weight extended release 95.455, kg, Start date: 10/01/13 9:00:00, Duration: 30 day, Stop date: 10/30/13 9:00:00(Same as: K-Dur 20)"Do Not Crush" With food and full glass of water Nitrostat 0.4 mg 0.4 mg, 1 tab, Route: SL, Drug 09/30/2013 10/01/2013 Discontinued sublingual tablet form: TAB, Q5Min, Dosing Weight 95.455, kg, PRN Chest Pain, Start date: 09/30/13 14:01:00, Duration: 3 doses or times, Stop date: Limited # of times(Same as:Nitroquick, Nitrostat)"Do Not Crush" Sublingual tablet Ativan 1 mg, 0.5 mL, Route: IV, Drug form: 09/28/2013 09/28/2013 Completed INJ, ONCE, Dosing Weight 95.455, kg, PRN Other -See Comment, Start date: 09/28/13 7:29:00, MRI(Same as: Ativan) metoprolol 5 mg/5 ml 2.5 mg, 2.5 mL, Route: IV, Drug 09/30/2013 10/01/2013 Discontinued INJ form: INJ, Q2H, Dosing Weight 95.455, kg, PRN Tachycardia, Start date: 09/30/13 14:00:00, Duration: 30 day, Stop date: 10/30/13 13:59:00(Same as: Lopressor) hydrALAZINE 10 mg, 0.5 mL, Route: IV, Drug 09/30/2013 10/01/2013 Discontinued form: INJ, Q4H, Dosing Weight 95.455, kg, PRN Hypertension, Start date: 09/30/13 14:00:00, Duration: 30 day, Stop date: 10/30/13 13:59:00(Same as: Apresoline) morphine Sulfate 2 mg, 1 mL, Route: IVP, Drug form: 09/30/2013 10/01/2013 Discontinued INJ, Q2H, Dosing Weight 95.455, kg, PRN Chest Pain, Start date: 09/30/13 14:00:00, Duration: 30 day, Stop date: 10/30/13 13:59:00(Same as:MORPhine Sulfate) pneumococcal 0.5 ml, Route: IM, Drug Form: INJ, 09/30/2013 09/30/2013 Completed 23-valent vaccine Start date: 09/30/13 9:00:00, Stop date: 09/30/13 9:00:00 nitroglycerin 2% 1 inch, Route: TOP, Drug Form: 09/27/2013 09/27/2013 Completed ointment OINT, Dosing Weight 81.818, kg, ONCE, STAT, Start date: 09/27/13 21:23:00, Stop date: 09/27/13 21:23:00 Lovenox 100 mg, 1 mL, Route: SUB-Q, Drug 09/28/2013 10/01/2013 Discontinued form: INJ, [id number], Start date: 09/28/13 8:00:00, Duration: 30 day, Stop date: 10/27/13 20:00:00Nurse to ensure documentation of patient education per anticoagulation policy.(Same as: Lovenox) Immunizations Vaccine Date Status pneumococcal 23-valent vaccine 09/30/2013 Auth (Verified) Vital Signs Most recent to oldest [Reference Range]: 1 2 3 Height 185.42 cm (09/28/2013 02:40:00) 182.88 cm (09/27/2013 21:07:00) Temperature Oral [96.4-99.1 DegF] 98.1 DegF (10/01/2013 11:58:00) 98.1 DegF (10/01/2013 07:58:00) 98.4 DegF (10/01/2013 04:36:00) Systolic Blood Pressure [90-140 mmHg] 153 mmHg *HI* (10/01/2013 11:58:00) 167 mmHg *HI* (10/01/2013 07:58:00) 135 mmHg (10/01/2013 04:36:00) Diastolic Blood Pressure [60-90 mmHg] 92 mmHg *HI* (10/01/2013 11:58:00) 90 mmHg (10/01/2013 07:58:00) 73 mmHg (10/01/2013 04:36:00) Respiratory Rate [14-20 BRMIN] 16 BRMIN (10/01/2013 11:58:00) 16 BRMIN (10/01/2013 07:58:00) 16 BRMIN (10/01/2013 06:33:00) Peripheral Pulse Rate [60-100 bpm] 88 bpm (10/01/2013 11:58:00) 76 bpm (10/01/2013 07:58:00) 65 bpm (10/01/2013 04:36:00) Weight 95.455 kg (09/28/2013 02:40:00) 81.818 kg (09/27/2013 21:07:00) Results URINALYSIS Most recent to oldest [Reference Range]: 1 2 3 UA Turbidity [Clear] Clear (09/27/2013 23:14:00) UA Color Ltyellow *NA* (09/27/2013 23:14:00) UA pH [5.0-8.0] 7.0 (09/27/2013 23:14:00) UA Spec Grav [<=1.030] 1.017 (09/27/2013 23:14:00) UA Glucose [Negative mg/dL] Negative mg/dL *NA* (09/27/2013 23:14:00) UA Blood [Negative] Small *ABN* (09/27/2013 23:14:00) UA Ketones [Negative mg/dL] Trace mg/dL *ABN* (09/27/2013 23:14:00) UA Protein [Negative mg/dL] Negative mg/dL (09/27/2013 23:14:00) UA Urobilinogen [0.1-1.0 mg/dL] <=1.0 mg/dL *NA* (09/27/2013 23:14:00) UA Bili [Negative] Negative *NA* (09/27/2013 23:14:00) UA Leuk Est [Negative] Negative (09/27/2013 23:14:00) UA Nitrite [Negative] Negative (09/27/2013 23:14:00) UA WBC [0-5 /HPF] 1 /HPF (09/27/2013 23:14:00) UA Sq Epi None Seen *NA* (09/27/2013 23:14:00) CHEMISTRY Most recent to oldest [Reference Range]: 1 2 3 Sodium Lvl [135-145 mEq/L] 136 mEq/L (10/01/2013 05:37:00) 140 mEq/L (09/30/2013 05:30:00) 134 mEq/L *LOW* (09/29/2013 05:44:00) Potassium Lvl [3.5-5.1 mEq/L] 3.8 mEq/L (10/01/2013 05:37:00) 3.7 mEq/L (09/30/2013 05:30:00) 3.5 mEq/L (09/29/2013 05:44:00) Chloride Lvl [95-109 mEq/L] 102 mEq/L (10/01/2013 05:37:00) 102 mEq/L (09/30/2013 05:30:00) 98 mEq/L (09/29/2013 05:44:00) CO2 [24-32 mEq/L] 26 mEq/L (10/01/2013 05:37:00) 26 mEq/L (09/30/2013 05:30:00) 29 mEq/L (09/29/2013 05:44:00) AGAP [10.0-20.0 mEq/L] 11.8 mEq/L (10/01/2013 05:37:00) 15.7 mEq/L (09/30/2013 05:30:00) 10.5 mEq/L (09/29/2013 05:44:00) Creatinine Lvl [0.5-1.4 mg/dL] 1.0 mg/dL (10/01/2013 05:37:00) 1.0 mg/dL (09/30/2013 05:30:00) 1.0 mg/dL (09/29/2013 05:44:00) eGFR 81 mL/min/1.73m2 1 *NA* (10/01/2013 05:37:00) 81 mL/min/1.73m2 2 *NA* (09/30/2013 05:30:00) 81 mL/min/1.73m2 3 *NA* (09/29/2013 05:44:00) BUN [7-22 mg/dL] 10 mg/dL (10/01/2013 05:37:00) 12 mg/dL (09/30/2013 05:30:00) 11 mg/dL (09/29/2013 05:44:00) B/C Ratio [6-25] 11 (09/29/2013 05:44:00) 10 (09/27/2013 21:25:00) Glucose Lvl [70-99 mg/dL] 99 mg/dL 4 (10/01/2013 05:37:00) 91 mg/dL 5 (09/30/2013 05:30:00) 88 mg/dL 6 (09/29/2013 05:44:00) Total Protein [6.4-8.4 g/dL] 6.3 g/dL *LOW* (09/29/2013 05:44:00) 7.4 g/dL (09/27/2013 21:25:00) Albumin Lvl [3.5-5.0 g/dL] 3.2 g/dL *LOW* (09/29/2013 05:44:00) 3.9 g/dL (09/27/2013 21:25:00) Globulin [2.0-4.0 g/dL] 3.1 g/dL (09/29/2013 05:44:00) 3.5 g/dL (09/27/2013 21:25:00) A/G Ratio [0.7-1.6] 1.0 (09/29/2013 05:44:00) 1.1 (09/27/2013 21:25:00) Calcium Lvl [8.5-10.5 mg/dL] 8.3 mg/dL *LOW* (10/01/2013 05:37:00) 8.3 mg/dL *LOW* (09/30/2013 05:30:00) 8.1 mg/dL *LOW* (09/29/2013 05:44:00) Phosphorus [2.5-4.5 mg/dL] 4.4 mg/dL (09/30/2013 05:30:00) Magnesium Lvl [1.8-2.4 mg/dL] 2.1 mg/dL (09/30/2013 05:30:00) ALT [0-65 unit/L] 74 unit/L *HI* (09/29/2013 05:44:00) 95 unit/L *HI* (09/27/2013 21:25:00) AST [0-37 unit/L] 64 unit/L *HI* (09/29/2013 05:44:00) 104 unit/L *HI* (09/27/2013 21:25:00) Alk Phos [39-136 unit/L] 92 unit/L (09/29/2013 05:44:00) 110 unit/L (09/27/2013 21:25:00) Bili Total [0.2-1.3 mg/dL] 0.7 mg/dL (09/29/2013 05:44:00) 1.8 mg/dL *HI* (09/27/2013 21:25:00) Vitamin D, 25-OH, Total [30-100 ng/mL] 17 ng/mL 7 *LOW* (09/30/2013 05:30:00) Total CK [12-191 unit/L] 219 unit/L *HI* (09/29/2013 05:44:00) 376 unit/L *HI* (09/28/2013 14:53:00) 535 unit/L *HI* (09/28/2013 04:03:00) CK MB [0.5-3.6 ng/mL] 4.3 ng/mL *HI* (09/29/2013 05:44:00) 5.6 ng/mL *HI* (09/28/2013 14:53:00) 9.0 ng/mL *HI* (09/28/2013 04:03:00) CK MB Index [0.0-2.5] 2.0 (09/29/2013 05:44:00) 1.5 (09/28/2013 14:53:00) 1.7 (09/28/2013 04:03:00) Troponin-I [0.00-0.40 ng/mL] 0.44 ng/mL *HI* (09/29/2013 05:44:00) 0.56 ng/mL 8 *CRIT* (09/28/2013 14:53:00) 1.01 ng/mL 9 *CRIT* (09/28/2013 04:03:00) BNP [<=100 pg/mL] 43 pg/mL 10 (09/27/2013 21:40:00) CHD Risk [4.00-7.30] 2.19 *LOW* (09/29/2013 05:44:00) 1.78 *LOW* (09/28/2013 04:03:00) Chol [<=199 mg/dL] 138 mg/dL (09/29/2013 05:44:00) 146 mg/dL (09/28/2013 04:03:00) Trig [<=149 mg/dL] 90 mg/dL (09/29/2013 05:44:00) 71 mg/dL (09/28/2013 04:03:00) HDL [>=61 mg/dL] 63 mg/dL (09/29/2013 05:44:00) 82 mg/dL (09/28/2013 04:03:00) LDL [<=99 mg/dL] 57 mg/dL (09/29/2013 05:44:00) 50 mg/dL (09/28/2013 04:03:00) TSH [0.360-3.740 uIU/mL] 2.230 uIU/mL (09/29/2013 05:44:00) U Amph Scr [Negative] Negative *NA* (09/27/2013 23:14:00) U Iraida Scr [Negative] Negative *NA* (09/27/2013 23:14:00) U Benzodia Scr [Negative] Negative *NA* (09/27/2013 23:14:00) U Cocaine Scr [Negative] Negative *NA* (09/27/2013 23:14:00) U Opiate Scr [Negative] Negative *NA* (09/27/2013 23:14:00) U Phencyc Scr [Negative] Negative *NA* (09/27/2013 23:14:00) U Cannab Scr [Negative] Negative *NA* (09/27/2013 23:14:00) UDS Note See Note 11 *NA* (09/27/2013 23:14:00) 1Result Comment: The eGFR is calculated using [...] be mul tiplied by the estimated BMI. 4Interpretive Data: Adult reference range values reflect the clinical guidelines of the [place] [employer]. 5Interpretive Data: Adult reference range values reflect the clinical guidelines of the [place] [employer]. 6Interpretive Data: Adult reference range values reflect the clinical guidelines of the [place] [employer]. 7Interpretive Data: Reference range is based on recommendations in the Endocrine Society Clinical Practice Guideline (J Clin Endocrinol Metab 2011;96:8069-0032) 8Result Comment: Critical Result(s) called to Anthony Franks at 09/28/2013 15:40 byDB. Read back OK. 9Result Comment: Critical Result(s) called to kashif kang at 09/28/2013 04:37 by savanna. Read back OK. 10Interpretive Data: Elevated results are in line with increasing severity of congestive heart failure. Minor elevations between 100 and 300 may be seen with Myocardial Ischemia, Sodium retaining drugs, and compensated/treated heart failure. 11Interpretive Data: Drugs reported as positive have not been confirmed by a second method and should be used for medical purposes only. To order confirmation, contact laboratory. note: Below are cut-off concentrations for all urine drugs of abuse performed in the laboratory. Some drugs listed in the table may not be included in this panel. Description Cut-off concentration Amphetamine 1000 ng/mL Barbiturates 200 ng/mL Benzodiazepines 300 ng/mL Cocaine metabolites 300 ng/mL Opiates 300 ng/mL Phencyclidine 25 ng/mL Propoxyphene 300 ng/mL Marijuana metabolites 50 ng/mL Methadone 300 ng/mL Urine alcohol 20 mg/dL HEMATOLOGY Most recent to oldest [Reference Range]: 1 2 3 WBC [3.7-10.4 K/CMM] 6.8 K/CMM (10/01/2013 05:37:00) 7.4 K/CMM (09/30/2013 05:30:00) 8.2 K/CMM (09/29/2013 05:44:00) RBC [4.70-6.10 M/CMM] 3.73 M/CMM *LOW* (10/01/2013 05:37:00) 4.00 M/CMM *LOW* (09/30/2013 05:30:00) 4.19 M/CMM *LOW* (09/29/2013 05:44:00) Hgb [14.0-18.0 g/dL] 11.7 g/dL *LOW* (10/01/2013 05:37:00) 12.3 g/dL *LOW* (09/30/2013 05:30:00) 13.1 g/dL *LOW* (09/29/2013 05:44:00) Hct [42.0-54.0 %] 35.1 % *LOW* (10/01/2013 05:37:00) 38.1 % *LOW* (09/30/2013 05:30:00) 39.5 % *LOW* (09/29/2013 05:44:00) MCV [80.0-94.0 fL] 94.1 fL *HI* (10/01/2013 05:37:00) 95.2 fL *HI* (09/30/2013 05:30:00) 94.4 fL *HI* (09/29/2013 05:44:00) MCH [27.0-31.0 pg] 31.3 pg *HI* (10/01/2013 05:37:00) 30.8 pg (09/30/2013 05:30:00) 31.3 pg *HI* (09/29/2013 05:44:00) MCHC [32.0-36.0 g/dL] 33.3 g/dL (10/01/2013 05:37:00) 32.4 g/dL (09/30/2013 05:30:00) 33.1 g/dL (09/29/2013 05:44:00) RDW [11.5-14.5 %] 13.9 % (10/01/2013 05:37:00) 13.9 % (09/30/2013 05:30:00) 13.8 % (09/29/2013 05:44:00) Platelet [133-450 K/CMM] 153 K/CMM (10/01/2013 05:37:00) 142 K/CMM (09/30/2013 05:30:00) 130 K/CMM *LOW* (09/29/2013 05:44:00) MPV [7.4-10.4 fL] 6.9 fL *LOW* (10/01/2013 05:37:00) 7.7 fL (09/30/2013 05:30:00) 7.7 fL (09/29/2013 05:44:00) Segs [45.0-75.0 %] 60.6 % (10/01/2013 05:37:00) 56.8 % (09/30/2013 05:30:00) 61.2 % (09/29/2013 05:44:00) Lymphocytes [20.0-40.0 %] 25.9 % (10/01/2013 05:37:00) 28.4 % (09/30/2013 05:30:00) 24.7 % (09/29/2013 05:44:00) Monocytes [2.0-12.0 %] 10.8 % (10/01/2013 05:37:00) 11.7 % (09/30/2013 05:30:00) 11.9 % (09/29/2013 05:44:00) Eosinophils [0.0-4.0 %] 2.4 % (10/01/2013 05:37:00) 2.5 % (09/30/2013 05:30:00) 1.8 % (09/29/2013 05:44:00) Basophils [0.0-1.0 %] 0.3 % (10/01/2013 05:37:00) 0.6 % (09/30/2013 05:30:00) 0.4 % (09/29/2013 05:44:00) Segs-Bands # [1.5-8.1 K/CMM] 4.1 K/CMM (10/01/2013 05:37:00) 4.2 K/CMM (09/30/2013 05:30:00) 5.0 K/CMM (09/29/2013 05:44:00) Lymphocytes # [1.0-5.5 K/CMM] 1.8 K/CMM (10/01/2013 05:37:00) 2.1 K/CMM (09/30/2013 05:30:00) 2.0 K/CMM (09/29/2013 05:44:00) Monocytes # [0.0-0.8 K/CMM] 0.7 K/CMM (10/01/2013 05:37:00) 0.9 K/CMM *HI* (09/30/2013 05:30:00) 1.0 K/CMM *HI* (09/29/2013 05:44:00) Eosinophils # [0.0-0.5 K/CMM] 0.2 K/CMM (10/01/2013 05:37:00) 0.2 K/CMM (09/30/2013 05:30:00) 0.2 K/CMM (09/29/2013 05:44:00) Basophils # [0.0-0.2 K/CMM] 0.0 K/CMM (10/01/2013 05:37:00) 0.0 K/CMM (09/30/2013 05:30:00) 0.0 K/CMM (09/29/2013 05:44:00) RBC Morph Normal (09/27/2013 21:40:00) Plt Morph Normal (09/27/2013 21:40:00) PT [12.0-14.7 seconds] 12.6 seconds (09/27/2013 22:03:00) INR [0.85-1.17] 0.95 12 (09/27/2013 22:03:00) PTT [22.9-35.8 seconds] 27.1 seconds 13 (09/27/2013 22:03:00) 12Interpretive Data: RECOMMENDED RANGES FOR PROTIME INR: 2.0-3.0 for most medical and surgical thromboembolic states. 2.5-3.5 for artificial heart valves and recurrent embolism. INR SHOULD BE USED ONLY FOR PATIENTS ON STABLE ANTICOAGULANT THERAPY. 13Interpretive Data: Heparin Therapeutic Range: 57 - 92 Seconds IMMUNOLOGY Most recent to oldest [Reference Range]: 1 2 3 CRP, High Sensitivity 3.6 mg/L 14 *NA* (09/30/2013 05:30:00) HIV 1/2 Ab [Negative] Negative *NA* (09/28/2013 10:17:00) Homocyst Tot [3.7-13.9 uMol/L] 8.7 uMol/L (09/30/2013 05:30:00) Hep Bs Ag [Negative] Negative *NA* (09/28/2013 04:05:00) Hep B Core Ab [Negative] Negative *NA* (09/28/2013 04:05:00) Hep A IgM [Negative] Negative *NA* (09/28/2013 04:05:00) Hep C Ab [Negative] Positive *NA* (09/28/2013 04:05:00) 14Interpretive Data: Low Risk: <1.0 mg/L Average Risk: 1.0 - 3.0 mg/L High Risk: >3.0 mg/L Inflammation: >10.0 mg/L Microbiology Reports PROCEDURE:Culture: Urine STATUS: Auth (Verified) BODY SITE: COLLECTED DATE/TIME: 09/27/2013 23:14:00 SOURCE: Urine, Clean Catch FREE TEXT SOURCE: FINAL REPORTS Final Report No Growth PRELIMINARY REPORTS Preliminary Report No Growth; Holding Procedures Procedures Date Related Diagnosis Appendicotomy Hip joint reconstruction Operation on bone injury of femur
--- OUTSIDE RECORDS SUMMARY | 2018-12-03 10:18 | XMS REPORT | Summary of Care ---
Author Author [facility] Organization [facility] Address Unknown Phone Unavailable Encounter DANDY Schmid(NATHALIA) [id number] Date(s): 10/09/17 - 10/13/17 [facility] [address] [place] [address]- [phone] Final: Chronic obstructive pulmonary disease with (acute) exacerbation Discharge Disposition: Home or Self Care Attending Physician: Carol Kessler MD Admitting Physician: Carol Kessler MD Vital Signs 1 2 3 Most recent to oldest [Reference Range]: 185.42 cm (10/09/17 6:32 AM) Height 114.7 kg (10/13/17 4:11 AM) 114.2 kg (10/12/17 4:29 AM) 113.682 kg (10/11/17 5:44 AM) Current Weight 98.6 DegF (10/13/17 11:37 AM) 97.8 DegF (10/13/17 7:54 AM) 98.0 DegF (10/13/17 4:00 AM) Temperature Oral [96.4-99.1 DegF] 120/60 mmHg (10/13/17 11:37 AM) 148/82 mmHg *HI* (10/13/17 7:54 AM) 131/63 mmHg (10/13/17 4:00 AM) Blood Pressure [90-140/60-90 mmHg] 16 BRMIN (10/13/17 11:37 AM) 16 BRMIN (10/13/17 8:57 AM) 18 BRMIN (10/13/17 7:54 AM) Respiratory Rate [14-20 BRMIN] 77 bpm (10/13/17 11:37 AM) 74 bpm (10/13/17 7:54 AM) 77 bpm (10/13/17 4:00 AM) Peripheral Pulse Rate [60-100 bpm] 109.091 kg (10/09/17 6:32 AM) Weight 31.73 m2 (10/09/17 6:32 AM) Body Mass Index Problem List Condition Effective Dates Status Health Status Informant Alcohol abuse1, 2 12/25/14 Active Angina(Confirmed) Resolved Benign hypertension3 Active CHF - Congestive Active heart failure(Confirmed) Chronic nonalcoholic Active liver disease4 Chronic obstructive Active lung disease5 Chronic pain6 Active Congestive heart Active failure7 COPD(Confirmed) Resolved Depression(Confirmed Resolved ) Diverticular disease Active of colon8 EMPHYSEMA(Confirmed) Active HTN - Resolved Hypertension(Confirm ed) Insomnia9 Active Internal Active [id number] Left anterior 04/26/13 Active fascicular block11 [id number] Active Umbilical [id number] 08/22/14 Active Ventricular 04/26/13 Active premature beats14 1Data migrated from [employer] on 05/13/15. 2Data migrated from [employer] on 04/07/15. 3Data migrated from [employer] on 04/04/15. 4Data migrated from [employer] on 04/04/15. 5Data migrated from [employer] on 04/04/15. 6Data migrated from [employer] on 04/04/15. 7Data migrated from [employer] on 04/04/15. 8Data migrated from [employer] on 04/04/15. 9Data migrated from [employer] on 04/04/15. 10Data migrated from [employer] on 04/04/15. 11Data migrated from [employer] on 04/04/15. 12Data migrated from [employer] on 04/04/15. 13Data migrated from [employer] on 04/04/15. 14Data migrated from [employer] on 04/04/15. Allergies, Adverse Reactions, Alerts Substance Reaction Severity Status NKDA Active Medications albuterol 0.083% inhalation solution 2.49 mg, 3 mL, Route: NEB, Drug form: SOLN, PRN, Dosing Weight 109.091, kg, PRN Respiratory Protocol, Start date: 10/09/17 11:37:00 ELECTRONIC SPECIALIST, Duration: 30 day, Stop date: 11/08/17 11:36:00 ELECTRONIC SPECIALIST Notes: SEE RT DOCUMENTATION (Same as: Proventil) Start Date: 10/09/17 Stop Date: 10/13/17 Status: Discontinued albuterol 0.083% inhalation solution 2.49 mg=3 mL, INHALATION, Q4H, PRN wheezing, coughing, or shortness of breath, # 120 ea, 1 Refill(s) Start Date: 10/09/17 Stop Date: 10/13/17 Status: Discontinued ALPRAZOLam 1 mg oral tablet 1 mg, 1 tab, Route: PO, Drug form: TAB, TID, Dosing Weight 109.091, kg, PRN Anxi ety, Start date: 10/09/17 18:15:00 ELECTRONIC SPECIALIST, Duration: 30 day, Stop date: 11/08/17 18 :14:00 ELECTRONIC SPECIALIST Notes: With food or milk(Same as: Xanax) Start Date: 10/09/17 Stop Date: 10/13/17 Status: Discontinued ALPRAZOLam 1 mg oral tablet 1 mg=1 tab, PO, TID, PRN as needed for anxiety, 0 Refill(s) Start Date: 10/09/17 Status: Ordered amLODIPine 5 mg, 1 tab, Route: PO, Drug form: TAB, Daily, Dosing Weight 109.091, kg, Start date: 10/10/17 9:00:00 ELECTRONIC SPECIALIST, Duration: 30 day, Stop date: 11/08/17 9:00:00 ELECTRONIC SPECIALIST Notes: (Same as: Norvasc) Start Date: 10/10/17 Stop Date: 10/13/17 Status: Discontinued aspirin 81 mg tablet, enteric coated 81 mg, 1 tab, Route: PO, Drug form: ECTAB, Daily, Dosing Weight 109.091, kg, Sta rt date: 10/09/17 19:00:00 ELECTRONIC SPECIALIST, Duration: 30 day, Stop date: 11/08/17 9:00:00 CS T Notes: Do not crush or chew.(Same As: Ecotrin) Start Date: 10/09/17 Stop Date: 10/13/17 Status: Discontinued azithromycin 500 mg, Route: IVPB, ONCE, Dosing Weight 109.091, kg, Priority: STAT, Start date : 10/09/17 7:11:00 ELECTRONIC SPECIALIST, Stop date: 10/09/17 7:11:00 ELECTRONIC SPECIALIST, ABX Indication: Pneumon ia Start Date: 10/09/17 Stop Date: 10/09/17 Status: Completed citalopram 20 mg, 2 tab, Route: PO, Drug form: TAB, Daily, Dosing Weight 109.091, kg, Start date: 10/10/17 9:00:00 ELECTRONIC SPECIALIST, Duration: 30 day, Stop date: 11/08/17 9:00:00 ELECTRONIC SPECIALIST Start Date: 10/10/17 Stop Date: 10/13/17 Status: Discontinued DuoNeb inhalation solution 6 mL, Route: NEB, Drug Form: SOLN, Dosing Weight 109.091, kg, ONCE, PRN Respirat ory Protocol, Start date: 10/09/17 7:10:00 ELECTRONIC SPECIALIST Start Date: 10/09/17 Stop Date: 10/09/17 Status: Completed DuoNeb inhalation solution 3 mL, Route: NEB, Drug Form: SOLN, Dosing Weight 109.091, kg, RQID, Start date: 10/09/17 19:00:00 ELECTRONIC SPECIALIST, Duration: 30 day, Stop date: 11/08/17 15:00:00 ELECTRONIC SPECIALIST Notes: (Same as: Duoneb) Start Date: 10/09/17 Stop Date: 10/13/17 Status: Discontinued famotidine 20 mg, 1 tab, Route: PO, Drug form: TAB, Bedtime, Start date: 10/09/17 21:00:00 ELECTRONIC SPECIALIST, Duration: 30 day, Stop date: 11/07/17 21:00:00 ELECTRONIC SPECIALIST Notes: (Same as: Pepcid) Start Date: 10/09/17 Stop Date: 10/13/17 Status: Discontinued furosemide 20 mg oral tablet 20 mg, 1 tab, Route: PO, Drug form: TAB, Daily, Dosing Weight 109.091, kg, Start date: 10/10/17 9:00:00 ELECTRONIC SPECIALIST, Duration: 30 day, Stop date: 11/08/17 9:00:00 ELECTRONIC SPECIALIST Notes: (Same as: Lasix) May cause GI upset. Give with food or milk. Start Date: 10/10/17 Stop Date: 10/13/17 Status: Discontinued influenza virus vaccine, inactivated 0.5 mL, Route: IM, Drug Form: SUSP, Daily, Start date: 10/10/17 9:00:00 ELECTRONIC SPECIALIST, Dur ation: 1 doses or times, Stop date: 10/10/17 9:00:00 ELECTRONIC SPECIALIST Notes: (Same as: Fluzone Quadrivalent, Fluarix Quadrivalent)For 3 years of age a nd older (0.5 mL IM)Shake well before use Start Date: 10/10/17 Stop Date: 10/10/17 Status: Completed isosorbide mononitrate 30 mg, 1 tab, Route: PO, Drug form: ERTAB, QAM, Dosing Weight 109.091, kg, Start date: 10/10/17 9:00:00 ELECTRONIC SPECIALIST, Duration: 30 day, Stop date: 11/08/17 9:00:00 ELECTRONIC SPECIALIST Notes: (Same as:Imdur)"Do Not Crush" Take on empty stomach/ full glass of water . Do not crush Start Date: 10/10/17 Stop Date: 10/13/17 Status: Discontinued levofloxacin 750 mg, 3 tab, Route: PO, Drug form: TAB, [id number], Dosing Weight 109.091, kg, fo r CrCl >49 mL/min, Start date: 10/11/17 20:00:00 ELECTRONIC SPECIALIST, Duration: 5 day, Stop date: 10/15/17 20:00:00 ELECTRONIC SPECIALIST, ABX Indication: Non-PNA Respiratory Tract Infection Notes: Do not give w/antacids, dairy pdt & minerals Take 1 hr before or 2 hr after dairy pdt (Same as:Levaquin) Start Date: 10/11/17 Stop Date: 10/13/17 Status: Discontinued levofloxacin 750 mg, 150 mL, Route: IVPB, Drug form: SOLN, [id number], Dosing Weight 109.091, kg , for CrCl >49 mL/min, Start date: 10/09/17 19:00:00 ELECTRONIC SPECIALIST, Duration: 5 day, Stop date: 10/13/17 19:00:00 ELECTRONIC SPECIALIST, ABX Indication: Non-PNA Respiratory Tract Infection Notes: (Same as:Levaquin) Start Date: 10/09/17 Stop Date: 10/11/17 Status: Discontinued levofloxacin 250 mg oral tablet 750 mg=3 tab, PO, [id number], X 5 day, # 15 tab, 0 Refill(s), [facility]acy: [facility] Start Date: 10/13/17 Stop Date: 10/18/17 Status: Ordered losartan 100 mg, 2 tab, Route: PO, Drug form: TAB, Daily, Dosing Weight 109.091, kg, Star t date: 10/10/17 9:00:00 ELECTRONIC SPECIALIST, Duration: 30 day, Stop date: 11/08/17 9:00:00 ELECTRONIC SPECIALIST Notes: (Same as: Lisa) Start Date: 10/10/17 Stop Date: 10/13/17 Status: Discontinued melatonin 5 mg oral tablet 5 mg=1 tab, PO, Bedtime, PRN for insomnia, # 60 tab, 0 Refill(s) Start Date: 10/09/17 Stop Date: 12/08/17 Status: Ordered methylPREDNISolone SODium SUCCinate 40 mg, 1 mL, Route: IVP, Drug form: INJ, Q8H, Dosing Weight 109.091, kg, Start d ate: 10/10/17 0:00:00 ELECTRONIC SPECIALIST, Duration: 5 day, Stop date: 10/14/17 16:00:00 ELECTRONIC SPECIALIST Notes: (Same as:Solu-MEDROL, A-Methapred) Start Date: 10/10/17 Stop Date: 10/11/17 Status: Discontinued metoprolol tartrate 25 mg, 1 tab, Route: PO, Drug form: TAB, Q12H, Dosing Weight 109.091, kg, Start date: 10/09/17 21:00:00 ELECTRONIC SPECIALIST, Duration: 30 day, Stop date: 11/08/17 9:00:00 ELECTRONIC SPECIALIST Notes: (Same as: Lopressor) Start Date: 10/09/17 Stop Date: 10/13/17 Status: Discontinued morphine Sulfate 6 mg, 3 mL, Route: PO, Drug form: SOLN, Q4H, Dosing Weight 109.091, kg, PRN Pain Score 7-10, Start date: 10/09/17 18:14:00 ELECTRONIC SPECIALIST, Duration: 30 day, Stop date: 01/21 18:13:00 ELECTRONIC SPECIALIST Notes: (Same as:MORPhine Sulfate) Start Date: 10/09/17 Stop Date: 10/13/17 Status: Discontinued [place] 10/325 oral tablet 1 tab, Route: PO, Drug Form: TAB, Dosing Weight 109.091, kg, Q4H, PRN Pain Score 4-6, Start date: 10/09/17 18:14:00 ELECTRONIC SPECIALIST, Duration: 30 day, Stop date: 11/08/17 1 8:13:00 ELECTRONIC SPECIALIST Notes: Do not exceed 4gm/day of acetaminophen. (Same as: [place] 325/10) Start Date: 10/09/17 Stop Date: 10/13/17 Status: Discontinued [place] 5/325 oral tablet 1 tab, PO, Q6H, PRN Pain Score 1-5, 0 Refill(s) Start Date: 10/09/17 Status: Ordered pneumococcal 23-valent vaccine 0.5 mL, Route: IM, Drug Form: INJ, Daily, Start date: 10/10/17 9:00:00 ELECTRONIC SPECIALIST, Dura tion: 1 doses or times, Stop date: 10/10/17 9:00:00 ELECTRONIC SPECIALIST Notes: (Same as: Pneumovax 23) Refrigerate Start Date: 10/10/17 Stop Date: 10/10/17 Status: Completed pravastatin 20 mg, 1 tab, Route: PO, Drug form: TAB, Bedtime, Dosing Weight 109.091, kg, Sta rt date: 10/09/17 21:00:00 ELECTRONIC SPECIALIST, Duration: 30 day, Stop date: 11/07/17 21:00:[address] Notes: (Same as: Pravachol) Start Date: 10/09/17 Stop Date: 10/13/17 Status: Discontinued predniSONE 40 mg, 2 tab, Route: PO, Drug form: TAB, Daily, Dosing Weight 109.091, kg, Start date: 10/12/17 9:00:00 ELECTRONIC SPECIALIST, Duration: 5 day, Stop date: 10/16/17 9:00:00 ELECTRONIC SPECIALIST Notes: Take with food. Start Date: 10/12/17 Stop Date: 10/13/17 Status: Discontinued predniSONE 60 mg, 3 tab, Route: PO, Drug form: TAB, ONCE, Dosing Weight 109.091, kg, Priori ty: STAT, Start date: 10/09/17 7:42:00 ELECTRONIC SPECIALIST, Stop date: 10/09/17 7:42:00 ELECTRONIC SPECIALIST Notes: Take with food. Start Date: 10/09/17 Stop Date: 10/09/17 Status: Completed predniSONE 20 mg oral tablet 40 mg=2 tab, PO, Daily, X 3 day, # 6 tab, 0 Refill(s), [facility]acy: [facility] Start Date: 10/13/17 Stop Date: 10/16/17 Status: Ordered Proventil HFA 90 mcg/inh inhalation aerosol with adapter 2 puff, Route: INHALER, Drug Form: AERO/A, Dosing Weight 109.091, kg, Q4H, PRN a s needed for wheezing, Start date: 10/09/17 18:15:00 ELECTRONIC SPECIALIST, Duration: 30 day, Stop date: 11/08/17 18:14:00 ELECTRONIC SPECIALIST Notes: Same as: Ventolin HFAWASTE: Aerosol - Return to Pharmacy Start Date: 10/09/17 Stop Date: 10/13/17 Status: Discontinued Robitussin-DM 5 mL, Route: PO, Drug Form: SYRP, Dosing Weight 109.091, kg, Q4H, Start date: 0:00:00 ELECTRONIC SPECIALIST, Duration: 30 day, Stop date: 11/08/17 20:00:00 ELECTRONIC SPECIALIST Notes: (dextromethorphan-guaifenesin 10-100mg/5ml 10 ml oral SOLN ud) (Same as: Robitussin DM) Start Date: 10/10/17 Stop Date: 10/13/17 Status: Discontinued Symbicort 160/4.5 inhalation aerosol with adapter 2 inhalation, Route: INHALER, Drug Form: AERO/A, Dosing Weight 109.091, kg, Antonio y, Start date: 10/10/17 9:00:00 ELECTRONIC SPECIALIST, Duration: 30 day, Stop date: 11/08/17 9:00: 00 ELECTRONIC SPECIALIST Notes: (Same as: Symbicort)WASTE: Aerosol - Return to Pharmacy Start Date: 10/10/17 Stop Date: 10/13/17 Status: Discontinued trazodone 50 mg oral tablet 100 mg, 2 tab, Route: PO, Drug form: TAB, Bedtime, Dosing Weight 109.091, kg, St art date: 10/09/17 21:00:00 ELECTRONIC SPECIALIST, Duration: 30 day, Stop date: 11/07/17 21:00:00 ELECTRONIC SPECIALIST Notes: (Same As: Desyrel) Start Date: 10/09/17 Stop Date: 10/13/17 Status: Discontinued Tylenol 650 mg, 2 tab, Route: PO, Drug form: TAB, Q6H, Dosing Weight 109.091, kg, PRN Pa in 1-3/Temp > 100.4 F, Start date: 10/09/17 18:14:00 ELECTRONIC SPECIALIST, Duration: 30 day, Stop date: 11/08/17 18:13:00 ELECTRONIC SPECIALIST Notes: Do not exceed 4 gm/day. (Same as: Tylenol) Start Date: 10/09/17 Stop Date: 10/13/17 Status: Discontinued Vancomycin Pharmacy Dosing 1 ea, Route: MISC, ONCALL, Dosing Weight 109.091, kg, Start date: 10/09/17 19:00 :00 ELECTRONIC SPECIALIST, Duration: 14 day, Stop date: 10/23/17 18:59:00 ELECTRONIC SPECIALIST, Pharmacy to dose, A BX Indication: Skin/Soft Tissue Infection Start Date: 10/09/17 Stop Date: 10/09/17 Status: Canceled Zantac 150 oral tablet 150 mg=1 tab, PO, Daily, 0 Refill(s) Start Date: 10/09/17 Status: Ordered Zantac 150 oral tablet 150 mg, 1 tab, Route: PO, Drug form: TAB, Daily, Dosing Weight 109.091, kg, Star t date: 10/10/17 9:00:00 ELECTRONIC SPECIALIST, Duration: 30 day, Stop date: 11/08/17 9:00:00 ELECTRONIC SPECIALIST Start Date: 10/10/17 Stop Date: 10/09/17 Status: Deleted Results ELECTROLYTES 1 2 3 Most recent to oldest [Reference Range]: 140 mEq/L (10/12/17 5:36 AM) 136 mEq/L (10/09/17 6:35 PM) 139 mEq/L (10/09/17 8:18 AM) Sodium Lvl [135-145 mEq/L] 3.5 mEq/L (10/12/17 5:36 AM) 4.3 mEq/L (10/09/17 6:35 PM) 4.0 mEq/L (10/09/17 8:18 AM) Potassium Lvl [3.5-5.1 mEq/L] 106 mEq/L (10/12/17 5:36 AM) 103 mEq/L (10/09/17 6:35 PM) 104 mEq/L (10/09/17 8:18 AM) Chloride Lvl [95-109 mEq/L] 25 mEq/L (10/12/17 5:36 AM) 24 mEq/L (10/09/17 6:35 PM) 25 mEq/L (10/09/17 8:18 AM) CO2 [24-32 mEq/L] 12.5 mEq/L (10/12/17 5:36 AM) 13.3 mEq/L (10/09/17 6:35 PM) 14.0 mEq/L (10/09/17 8:18 AM) AGAP [10.0-20.0 mEq/L] CHEM PANEL 1 2 3 Most recent to oldest [Reference Range]: 1.02 mg/dL (10/12/17 5:36 AM) 1.06 mg/dL (10/09/17 6:35 PM) 0.87 mg/dL (10/09/17 8:18 AM) Creatinine Lvl [0.50-1.40 mg/dL] 77 mL/min/1.73m2 1 *NA* (10/12/17 5:36 AM) 74 mL/min/1.73m2 2 *NA* (10/09/17 6:35 PM) 91 mL/min/1.73m2 3 *NA* (10/09/17 8:18 AM) eGFR 28 mg/dL *HI* (10/12/17 5:36 AM) 14 mg/dL (10/09/17 6:35 PM) 10 mg/dL (10/09/17 8:18 AM) BUN [7-22 mg/dL] 13 (10/09/17 6:35 PM) 11 (10/09/17 8:18 AM) B/C Ratio [6-25] 102 mg/dL *HI* (10/12/17 5:36 AM) 155 mg/dL *HI* (10/09/17 6:35 PM) 111 mg/dL *HI* (10/09/17 8:18 AM) Glucose Lvl [70-99 mg/dL] 7.6 g/dL (10/09/17 6:35 PM) 7.4 g/dL (10/09/17 8:18 AM) Total Protein [6.4-8.4 g/dL] 3.7 g/dL (10/09/17 6:35 PM) 3.6 g/dL (10/09/17 8:18 AM) Albumin Lvl [3.5-5.0 g/dL] 3.9 g/dL (10/09/17 6:35 PM) 3.8 g/dL (10/09/17 8:18 AM) Globulin [2.7-4.2 g/dL] 0.9 (10/09/17 6:35 PM) 0.9 (10/09/17 8:18 AM) A/G Ratio [0.7-1.6] 8.1 mg/dL *LOW* (10/12/17 5:36 AM) 8.9 mg/dL (10/09/17 6:35 PM) 8.3 mg/dL *LOW* (10/09/17 8:18 AM) Calcium Lvl [8.5-10.5 mg/dL] 30 unit/L (10/09/17 6:35 PM) 29 unit/L (10/09/17 8:18 AM) ALT [0-65 unit/L] 19 unit/L (10/09/17 6:35 PM) 17 unit/L (10/09/17 8:18 AM) AST [0-37 unit/L] 97 unit/L (10/09/17 6:35 PM) 87 unit/L (10/09/17 8:18 AM) Alk Phos [39-136 unit/L] 0.7 mg/dL (10/09/17 6:35 PM) 0.9 mg/dL (10/09/17 8:18 AM) Bili Total [0.2-1.3 mg/dL] 1Result Comment: The eGFR is calculated using [...] be mul tiplied by the estimated BMI. CARDIAC ENZYMES 1 2 3 Most recent to oldest [Reference Range]: 172 unit/L (10/09/17 8:18 AM) Total CK [12-191 unit/L] 3.2 ng/mL (10/09/17 8:18 AM) CK MB [0.5-3.6 ng/mL] 1.9 (10/09/17 8:18 AM) CK MB Index [0.0-2.5] <0.02 ng/mL (10/09/17 8:18 AM) Troponin-I [0.00-0.40 ng/mL] 18 pg/mL (10/09/17 8:18 AM) BNP [<=100 pg/mL] HEMATOLOGY 1 2 3 Most recent to oldest [Reference Range]: 16.7 K/CMM *HI* (10/12/17 5:36 AM) 9.9 K/CMM (10/09/17 8:18 AM) WBC [3.7-10.4 K/CMM] 4.02 M/CMM *LOW* (10/12/17 5:36 AM) 4.47 M/CMM *LOW* (10/09/17 8:18 AM) RBC [4.70-6.10 M/CMM] 12.7 g/dL *LOW* (10/12/17 5:36 AM) 14.4 g/dL (10/09/17 8:18 AM) Hgb [14.0-18.0 g/dL] 38.1 % *LOW* (10/12/17 5:36 AM) 42.1 % (10/09/17 8:18 AM) Hct [42.0-54.0 %] 94.6 fL *HI* (10/12/17 5:36 AM) 94.3 fL *HI* (10/09/17 8:18 AM) MCV [80.0-94.0 fL] 31.6 pg *HI* (10/12/17 5:36 AM) 32.3 pg *HI* (10/09/17 8:18 AM) MCH [27.0-31.0 pg] 33.4 g/dL (10/12/17 5:36 AM) 34.2 g/dL (10/09/17 8:18 AM) MCHC [32.0-36.0 g/dL] 13.2 % (10/12/17 5:36 AM) 13.7 % (10/09/17 8:18 AM) RDW [11.5-14.5 %] 198 K/CMM (10/12/17 5:36 AM) 208 K/CMM (10/09/17 8:18 AM) Platelet [133-450 K/CMM] 8.1 fL (10/12/17 5:36 AM) 8.0 fL (10/09/17 8:18 AM) MPV [7.4-10.4 fL] 77.7 % *HI* (10/12/17 5:36 AM) 67.8 % (10/09/17 8:18 AM) Segs [45.0-75.0 %] 14.3 % *LOW* (10/12/17 5:36 AM) 15.3 % *LOW* (10/09/17 8:18 AM) Lymphocytes [20.0-40.0 %] 7.9 % (10/12/17 5:36 AM) 9.1 % (10/09/17 8:18 AM) Monocytes [2.0-12.0 %] 7.3 % *HI* (10/09/17 8:18 AM) Eosinophils [0.0-4.0 %] 0.1 % (10/12/17 5:36 AM) 0.5 % (10/09/17 8:18 AM) Basophils [0.0-1.0 %] 13.0 K/CMM *HI* (10/12/17 5:36 AM) 6.7 K/CMM (10/09/17 8:18 AM) Segs-Bands # [1.5-8.1 K/CMM] 2.4 K/CMM (10/12/17 5:36 AM) 1.5 K/CMM (10/09/17 8:18 AM) Lymphocytes # [1.0-5.5 K/CMM] 1.3 K/CMM *HI* (10/12/17 5:36 AM) 0.9 K/CMM *HI* (10/09/17 8:18 AM) Monocytes # [0.0-0.8 K/CMM] 0.7 K/CMM *HI* (10/09/17 8:18 AM) Eosinophils # [0.0-0.5 K/CMM] 14.1 seconds (10/09/17 8:18 AM) PT [12.0-14.7 seconds] 1.09 (10/09/17 8:18 AM) INR [0.85-1.17] 32.4 seconds (10/09/17 8:18 AM) PTT [22.9-35.8 seconds] Immunizations Given and Recorded Vaccine Date Status Refusal Reason pneumococcal 23-valent vaccine 10/10/17 Given pneumococcal 23-valent vaccine1 10/02/13 Given pneumococcal 23-valent vaccine 09/30/13 Given influenza virus vaccine, inactivated 10/10/17 Given influenza virus vaccine, inactivated2 07/26/13 Given Hx influenza vaccine-unspecified3 08/22/14 Given 1Result Comment: done @ hospital. Migrated from OBS ; Data migrated from [employer] on 12/08/2015. 2Result Comment: fluzone (>3 yrs.) [[id number]]. Migrated from OBS ; Data migrated from [employer] on 12/08/2015. 3Result Comment: fluzone (quadrivalent) no preservative (>3 yrs.) [[id number]]. Migrated from OBS ; Data migrated from [employer] on 12/08/2015. Procedures Procedure Date Related Diagnosis Body Site Appendicotomy Cardiac catheterization Hip joint reconstruction Operation on bone injury of femur Pelvis repair1 1reconstructive surgery (plate and screws) Social History Social History Type Response Alcohol Past, Type Beer. Frequency: 1-2 times per month. Last use: May. Started age 11 Years. Previous treatment: None. Alcohol use interferes with work or home: No. Drinks more than intended: No. Others hurt by drinking: No. Ready to change: No. Household alcohol concerns: No. Smoking Status Former smoker; Type: Cigarettes; Lives with someone who smokes; Cigarette Smoking Last 365 Days No; Reg Smoking Cessation Counseling No; Tobacco use per day: 10; Number of years: 35; Started at age: 12.0; Assessment and Plan Extracted from: Title: Progress Note * Author: Carol Kessler MD Date: 10/12/17 Impression and Plan --COPD exacerbation, acute -Patient is currently saturating well on 2L nasal cannula -We will continue duo nebs PRN -Prednisone 40 mg daily 5 days total -Continue levofloxacin -Set up home O2, dropped to 88% on ambulation --CHF, likely ischemic. Systolic, compensated -We will continue current management with Lasix -We will continue strict I's and O's, 2 L fluid restriction -We will continue aspirin and statin --Hypertension, benign essential -Blood pressure is currently controlled -We will continue patient home medications --Depression, continue current management --HLD, statin Code: FULL Diet: REG Ppx: SCDTEDS Dispo: Pending Home O2, once arranged can be DC to home. Patient is otherwise medically cleared. Patient seen by Carol Kessler MD Internal Medicine Hospitalist Extracted from: Title: General Admission H&P * Author: Fahad Zimmerman MD Date: 10/09/17 Impression and Plan SOB, Cough Acute COPD Exacerbation HTN Chronic CHF (unknown type, suspect diastolic dysfunction) Hx of NM? HLD Anxiety/Depression Plan: -Admit for COPD exacerbation. Started duonebs, IV steroids, and Abx. . Reconcile home meds once available. Will monitor improvement and evaluate in AM. DVT PPX: SCDs Patient seen by Fahad Zimmerman MD Internal Medicine Hospitalist
--- OUTSIDE RECORDS SUMMARY | 2018-12-03 10:18 | XMS REPORT | Summary of Care ---
Author Organization Unknown Address Unknown Phone Unavailable Encounter [facility] Sharmaine(NATHALIA) [id number] Date(s): 12/07/14 - 12/09/14 [facility] [id number] Discharge Disposition: Home Physician Attending: Theresa Pierson DO Physician Admitting: Theresa Pierson DO Reason for Visit CHEST PAIN Vital Signs 1 2 3 Most recent to oldest [Reference Range]: 182.88 cm (12/08/14 4:54 AM) 182.88 cm (12/07/14 10:39 PM) Height 98.6 DegF (12/09/14 12:00 PM) 99.1 DegF (12/09/14 8:00 AM) 98.5 DegF (12/09/14 4:00 AM) Temperature Oral [96.4-99.1 DegF] 135 mmHg (12/09/14 12:00 PM) 128 mmHg (12/09/14 8:00 AM) 163 mmHg *HI* (12/09/14 4:00 AM) Systolic Blood Pressure [90-140 mmHg] 77 mmHg (12/09/14 12:00 PM) 76 mmHg (12/09/14 8:00 AM) 77 mmHg (12/09/14 4:00 AM) Diastolic Blood Pressure [60-90 mmHg] 18 BRMIN (12/09/14 12:00 PM) 18 BRMIN (12/09/14 8:00 AM) 18 BRMIN (12/09/14 4:00 AM) Respiratory Rate [14-20 BRMIN] 76 bpm (12/09/14 12:00 PM) 86 bpm (12/09/14 8:00 AM) 92 bpm (12/09/14 4:00 AM) Peripheral Pulse Rate [60-100 bpm] 96.364 kg (12/08/14 9:00 AM) 100 kg (12/08/14 4:54 AM) 100 kg (12/07/14 10:39 PM) Weight 29.9 m2 (12/08/14 4:54 AM) 29.9 m2 (12/07/14 10:39 PM) Body Mass Index Problem List Condition Effective Dates Status Health Status Informant Angina(Confirmed) Resolved CHF - Congestive Active heart failure(Confirmed) COPD(Confirmed) Resolved Depression(Confirmed Resolved ) EMPHYSEMA(Confirmed) Active HTN - Resolved Hypertension(Confirm ed) Smoker(Confirmed) Active Allergies, Adverse Reactions, Alerts Substance Reaction Severity Status NKDA Active Medications amLODIPine 5 mg, 1 tab, Route: PO, Drug form: TAB, QPM, Dosing Weight 100, kg, Start date: 12/08/14 17:00:00, Duration: 30 day, Stop date: 01/06/15 17:00:00 Notes: (Same as: Norvasc) Start Date: 12/08/14 Stop Date: 12/09/14 Status: Discontinued aspirin 324 mg, 4 tab, Route: PO, Drug form: CHEWTAB, ONCE, Dosing Weight 100, kg, Prior ity: STAT, Start date: 12/07/14 23:09:00, Stop date: 12/07/14 23:09:00 Notes: Take with food. Start Date: 12/07/14 Stop Date: 12/07/14 Status: Completed aspirin 325 mg tablet 325 mg, 1 tab, Route: PO, Drug form: TAB, ONCE, Dosing Weight 100, kg, Start luba e: 12/08/14 5:00:00, Stop date: 12/08/14 5:00:00 Notes: Take with food. Start Date: 12/08/14 Stop Date: 12/08/14 Status: Completed aspirin 81 mg tablet, enteric coated 81 mg, 1 tab, Route: PO, Drug form: ECTAB, Daily, Dosing Weight 100, kg, Start d ate: 12/08/14 11:00:00, Duration: 30 day, Stop date: 01/07/15 9:00:00 Notes: Do not crush or chew.(Same As: Ecotrin) Start Date: 12/08/14 Stop Date: 12/09/14 Status: Discontinued atropine 0.5 mg, 5 mL, Route: IVP, Drug form: INJ, PRN, PRN Bradycardia, Start date: 12/21 4:06:00, Duration: 30 day, Stop date: 01/07/15 4:05:00 Start Date: 12/08/14 Stop Date: 12/08/14 Status: Deleted Carafate 1 g/10 mL oral suspension 1 gm=10 mL, PO, QID, 0 Refill(s) Start Date: 12/09/14 Stop Date: 12/09/14 Status: Deleted Carafate 1 g/10 mL oral suspension 1 gm=10 mL, PO, QID, # 1200 mL, 0 Refill(s) Start Date: 12/09/14 Status: Ordered Carafate 1 g/10 mL oral suspension 1 gm, 10 mL, Route: PO, Drug form: SUSP, QID, Dosing Weight 100, kg, Start date: 12/08/14 17:00:00, Duration: 30 day, Stop date: 01/07/15 13:00:00 Notes: Enteral feeds may interfere with the absorption of this medication. Taye e well. Take 1 hr before or 2 hrs after antacids, dairy pdt, minerals & meals. (Same As: Carafate) Start Date: 12/08/14 Stop Date: 12/09/14 Status: Discontinued citalopram 20 mg, 1 tab, Route: PO, Drug form: TAB, Daily, Dosing Weight 100, kg, Start luba e: 12/08/14 11:00:00, Duration: 30 day, Stop date: 01/07/15 9:00:00 Notes: (Same As: CeleXA) Start Date: 12/08/14 Stop Date: 12/09/14 Status: Discontinued Combivent Respimat CFC free 100 mcg-20 mcg/inh inhalation aerosol 0 Refill(s) Start Date: 12/08/14 Status: Ordered enoxaparin 40 mg, 0.4 mL, Route: SUB-Q, Drug form: INJ, [id number], Dosing Weight 100, kg, St art date: 12/08/14 10:00:00, Duration: 30 day, Stop date: 01/06/15 10:00:00 Notes: (Same as: Lovenox) Start Date: 12/08/14 Stop Date: 12/09/14 Status: Discontinued furosemide 20 mg oral tablet 20 mg, 1 tab, Route: PO, Drug form: TAB, Daily-12N, Dosing Weight 100, kg, Start date: 12/08/14 12:00:00, Duration: 30 day, Stop date: 01/06/15 12:00:00 Notes: (Same as: Lasix) May cause GI upset. Give with food or milk. Start Date: 12/08/14 Stop Date: 12/09/14 Status: Discontinued hydrALAZINE 10 mg, 0.5 mL, Route: IV, Drug form: INJ, Q4H, Dosing Weight 100, kg, PRN Hypert ension, Start date: 12/08/14 9:34:00, Duration: 30 day, Stop date: 01/07/15 9:33 :00 Notes: (Same as: Apresoline)Push over 5 minutes Start Date: 12/08/14 Stop Date: 12/09/14 Status: Discontinued isosorbide mononitrate 30 mg, 1 tab, Route: PO, Drug form: ERTAB, QAM, Dosing Weight 100, kg, Start luba e: 12/08/14 11:00:00, Duration: 30 day, Stop date: 01/07/15 9:00:00 Notes: (Same as:Imdur)"Do Not Crush" Take on empty stomach/ full glass of water . Do not crush Start Date: 12/08/14 Stop Date: 12/09/14 Status: Discontinued lactobacillus acidophilus 1 tab, Route: PO, Drug Form: TAB, Dosing Weight 100, kg, BID, Start date: 17:00:00, Duration: 30 day, Stop date: 01/07/15 9:00:00 Start Date: 12/08/14 Stop Date: 12/08/14 Status: Deleted lactobacillus rhamnosus GG 80 mg, 1 cap, Route: PO, Drug Form: CAP, BID, Start date: 12/08/14 17:00:00, Dur ation: 30 day, Stop date: 01/07/15 9:00:00 Notes: Same as Culturelle Start Date: 12/08/14 Stop Date: 12/09/14 Status: Discontinued losartan 100 mg, 2 tab, Route: PO, Drug form: TAB, Daily, Dosing Weight 100, kg, Start da te: 12/09/14 9:00:00, Duration: 30 day, Stop date: 01/07/15 9:00:00 Notes: (Same as: Lisa) Start Date: 12/09/14 Stop Date: 12/09/14 Status: Discontinued losartan 100 mg oral tablet 100 mg=1 tab, PO, Daily, # 30 tab, 0 Refill(s) Start Date: 12/08/14 Status: Ordered losartan 50 mg oral tablet 100 mg=2 tab, PO, Daily, 0 Refill(s) Start Date: 12/09/14 Status: Ordered metoprolol 5 mg/5 ml INJ 2.5 mg, 2.5 mL, Route: IV, Drug form: INJ, Q2H, Dosing Weight 100, kg, PRN Tachy cardia, Start date: 12/08/14 9:34:00, Duration: 30 day, Stop date: 01/07/15 9:33 :00 Notes: (Same as: Lopressor)Push over 2 minutes Start Date: 12/08/14 Stop Date: 12/09/14 Status: Discontinued metoprolol tartrate 50 mg, 1 tab, Route: PO, Drug form: TAB, Q12H, Dosing Weight 100, kg, Start date : 12/08/14 11:00:00, Duration: 30 day, Stop date: 01/07/15 9:00:00 Notes: (Same as: Lopressor) Start Date: 12/08/14 Stop Date: 12/09/14 Status: Discontinued Metoprolol Tartrate 25 mg oral tablet 25 mg=1 tab, PO, BID, # 60 tab, 0 Refill(s) Start Date: 12/08/14 Status: Ordered metoprolol tartrate 50 mg oral tablet 50 mg=1 tab, PO, BID, # 60 tab, 0 Refill(s) Start Date: 12/09/14 Stop Date: 12/09/14 Status: Discontinued morphine Sulfate 2 mg, 1 mL, Route: IVP, Drug form: INJ, Q2H, Dosing Weight 100, kg, PRN Chest Pa in, Start date: 12/08/14 9:34:00, Duration: 30 day, Stop date: 01/07/15 9:33:00 Notes: (Same as:MORPhine Sulfate) Start Date: 12/08/14 Stop Date: 12/09/14 Status: Discontinued nitroglycerin 0.4 mg sublingual tablet 0.4 mg, 1 tab, Route: SL, Drug form: TAB, Q5Min, PRN Chest Pain, Start date: 12/21 4:06:00, Duration: 30 day, Stop date: 01/07/15 4:05:00 Notes: (Same as:Nitroquick, Nitrostat)"Do Not Crush" Sublingual tablet Start Date: 12/08/14 Stop Date: 12/08/14 Status: Deleted nitroglycerin 2% ointment 1 inch, Route: TOP, Drug Form: OINT, Dosing Weight 100, kg, ONCE, STAT, Start da te: 12/07/14 23:09:00, Stop date: 12/07/14 23:09:00 Notes: 1 gram is approximately 1 inch of nitroglycerin ointment (20 mg NTG pe r gram) (Same as:Nitro-Bid) Start Date: 12/07/14 Stop Date: 12/07/14 Status: Completed nitroglycerin 2% ointment 0.5 inch, Route: TOP, Drug Form: OINT, Dosing Weight 100, kg, TID, Start date: 0 12/08/14 6:00:00, Duration: 30 day, Stop date: 01/06/15 18:00:00 Notes: 1 gram is approximately 1 inch of nitroglycerin ointment (20 mg NTG pe r gram) (Same as:Nitro-Bid) Start Date: 12/08/14 Stop Date: 12/08/14 Status: Discontinued nitroglycerin SL Tab 0.4 mg, 1 tab, Route: SL, Drug form: TAB, Q5Min, Dosing Weight 100, kg, PRN Ches t Pain, Start date: 12/08/14 5:00:00, Duration: 3 doses or times, Stop date: Ann ited # of times Notes: (Same as:Nitroquick, Nitrostat)"Do Not Crush" Sublingual tablet Start Date: 12/08/14 Stop Date: 12/08/14 Status: Discontinued Nitrostat 0.4 mg sublingual tablet 0.4 mg, 1 tab, Route: SL, Drug form: TAB, Q5Min, Dosing Weight 100, kg, PRN Ches t Pain, Start date: 12/08/14 9:34:00, Duration: 3 doses or times, Stop date: Ann ited # of times Start Date: 12/08/14 Stop Date: 12/08/14 Status: Deleted Nitrostat 0.4 mg sublingual tablet 0.4 mg, 1 tab, Route: SL, Drug form: TAB, Q5Min, Dosing Weight 100, kg, PRN Ches t Pain, Start date: 12/08/14 9:25:00, Stop date: 01/07/15 9:24:00 Notes: (Same as:Nitroquick, Nitrostat)"Do Not Crush" Sublingual tablet Start Date: 12/08/14 Stop Date: 12/09/14 Status: Discontinued [place] 5/325 oral tablet 1 tab, Route: PO, Drug Form: TAB, Dosing Weight 100, kg, Q6H, PRN Pain Score 4-6 , Start date: 12/08/14 9:29:00, Stop date: 01/07/15 9:28:00 Notes: (Same as: [place] 325/5) Do not exceed 4gm/day of acetaminophen. Start Date: 12/08/14 Stop Date: 12/09/14 Status: Discontinued ondansetron 2 mg, 0.5 tab, Route: PO, Drug form: TAB, Q4H, Dosing Weight 100, kg, PRN as nee ded for nausea/vomiting, Priority: STAT, Start date: 12/08/14 13:46:00, Duration : 30 day, Stop date: 01/07/15 13:45:00 Notes: (Same as: Zofran) Start Date: 12/08/14 Stop Date: 12/09/14 Status: Discontinued pantoprazole 40 mg oral enteric coated tablet 40 mg=1 tab, PO, BID, # 60 tab, 0 Refill(s) Start Date: 12/09/14 Stop Date: 12/09/14 Status: Discontinued Pepcid 10 mg, 0.5 tab, Route: PO, Drug form: TAB, BID, Start date: 12/08/14 17:00:00, D uration: 30 day, Stop date: 01/07/15 9:00:00 Notes: (Same as: Pepcid) Start Date: 12/08/14 Stop Date: 12/08/14 Status: Canceled Pepcid Complete 1 tab, Route: PO, Dosing Weight 100, kg, BID, Start date: 12/08/14 17:00:00, Dur ation: 30 day, Stop date: 01/07/15 9:00:00 Start Date: 12/08/14 Stop Date: 12/08/14 Status: Deleted pravastatin 20 mg, 1 tab, Route: PO, Drug form: TAB, Bedtime, Dosing Weight 100, kg, Start d ate: 12/08/14 21:00:00, Duration: 30 day, Stop date: 01/06/15 21:00:00 Notes: (Same as: Pravachol) Start Date: 12/08/14 Stop Date: 12/09/14 Status: Discontinued Protonix 40 mg, 1 tab, Route: PO, Drug form: ECTAB, BID, Dosing Weight 100, kg, Start luba e: 12/08/14 17:00:00, Duration: 30 day, Stop date: 01/07/15 9:00:00 Notes: Tablet should not be chewed or crushed.(Same as: Protonix) Start Date: 12/08/14 Stop Date: 12/09/14 Status: Discontinued Saline Flush 0.9% 10 mL, Route: IVP, Drug Form: INJ, Dosing Weight 100, kg, PRN, PRN Line Flush, S tart date: 12/07/14 23:09:00, Duration: 30 day, Stop date: 01/06/15 23:08:00 Notes: (Same as: BD Posiflush) Start Date: 12/07/14 Stop Date: 12/08/14 Status: Discontinued Saline Flush 0.9% 10 ml, Route: IVP, Drug Form: INJ, Dosing Weight 100, kg, Q12H, Start date: 12/21 9:00:00, Duration: 30 day, Stop date: 01/06/15 21:00:00 Notes: (Same as: BD Posiflush) Start Date: 12/08/14 Stop Date: 12/09/14 Status: Discontinued Saline Flush 0.9% 10 ml, Route: IVP, Drug Form: INJ, Dosing Weight 100, kg, PRN, PRN Line Flush, S tart date: 12/08/14 5:00:00, Duration: 30 day, Stop date: 01/07/15 4:59:00 Notes: (Same as: BD Posiflush) Start Date: 12/08/14 Stop Date: 12/09/14 Status: Discontinued Symbicort 160/4.5 inhalation aerosol with adapter 2 puff, INHALATION, BID, # 6 gm, 0 Refill(s) Start Date: 12/08/14 Status: Ordered Symbicort 160/4.5 inhalation aerosol with adapter 2 inhalation, Route: INHALATION, Drug Form: AERO/A, Dosing Weight 100, kg, BID, Start date: 12/08/14 21:00:00, Duration: 30 day, Stop date: 01/07/15 9:00:00 Notes: (Same as: Symbicort) Start Date: 12/08/14 Stop Date: 12/09/14 Status: Discontinued trazodone 100 mg oral tablet 100 mg, 1 tab, Route: PO, Drug form: TAB, Bedtime, Dosing Weight 100, kg, Start date: 12/08/14 21:00:00, Duration: 30 day, Stop date: 01/06/15 21:00:00 Notes: (Same As: Desyrel) Start Date: 12/08/14 Stop Date: 12/09/14 Status: Discontinued Results ELECTROLYTES 1 2 3 Most recent to oldest [Reference Range]: 132 mEq/L *LOW* (12/08/14 7:54 PM) 127 mEq/L *LOW* (12/07/14 11:20 PM) Sodium Lvl [135-145 mEq/L] 4.1 mEq/L (12/08/14 7:54 PM) 4.6 mEq/L (12/07/14 11:20 PM) Potassium Lvl [3.5-5.1 mEq/L] 97 mEq/L (12/08/14 7:54 PM) 93 mEq/L *LOW* (12/07/14 11:20 PM) Chloride Lvl [95-109 mEq/L] 20 mEq/L *LOW* (12/08/14 7:54 PM) 19 mEq/L *LOW* (12/07/14 11:20 PM) CO2 [24-32 mEq/L] 19.1 mEq/L (12/08/14 7:54 PM) 19.6 mEq/L (12/07/14 11:20 PM) AGAP [10.0-20.0 mEq/L] CHEM PANEL 1 2 3 Most recent to oldest [Reference Range]: 1.2 mg/dL (12/08/14 7:54 PM) 1.2 mg/dL (12/08/14 9:48 AM) 0.9 mg/dL (12/07/14 11:20 PM) Creatinine Lvl [0.5-1.4 mg/dL] 65 mL/min/1.73m2 1 *NA* (12/08/14 7:54 PM) 65 mL/min/1.73m2 2 *NA* (12/08/14 9:48 AM) 92 mL/min/1.73m2 3 *NA* (12/07/14 11:20 PM) eGFR 17 mg/dL (12/08/14 7:54 PM) 11 mg/dL (12/07/14 11:20 PM) BUN [7-22 mg/dL] 14 (12/08/14 7:54 PM) 12 (12/07/14 11:20 PM) B/C Ratio [6-25] 126 mg/dL 4 *HI* (12/08/14 7:54 PM) 82 mg/dL 5 (12/07/14 11:20 PM) Glucose Lvl [70-99 mg/dL] 6.7 g/dL (12/09/14 3:55 AM) 7.6 g/dL (12/08/14 7:54 PM) 7.2 g/dL (12/07/14 11:20 PM) Total Protein [6.4-8.4 g/dL] 3.4 g/dL *LOW* (12/09/14 3:55 AM) 3.7 g/dL (12/08/14 7:54 PM) 3.6 g/dL (12/07/14 11:20 PM) Albumin Lvl [3.5-5.0 g/dL] 3.3 g/dL (12/09/14 3:55 AM) 3.9 g/dL (12/08/14 7:54 PM) 3.6 g/dL (12/07/14 11:20 PM) Globulin [2.0-4.0 g/dL] 1.0 (12/09/14 3:55 AM) 0.9 (12/08/14 7:54 PM) 1.0 (12/07/14 11:20 PM) A/G Ratio [0.7-1.6] 8.6 mg/dL (12/08/14 7:54 PM) 8.1 mg/dL *LOW* (12/07/14 11:20 PM) Calcium Lvl [8.5-10.5 mg/dL] 4.2 mg/dL (12/08/14 9:48 AM) Phosphorus [2.5-4.5 mg/dL] 1.9 mg/dL (12/08/14 9:48 AM) Magnesium Lvl [1.8-2.4 mg/dL] 39 unit/L (12/09/14 3:55 AM) 49 unit/L (12/08/14 7:54 PM) 46 unit/L (12/07/14 11:20 PM) ALT [0-65 unit/L] 37 unit/L (12/09/14 3:55 AM) 47 unit/L *HI* (12/08/14 7:54 PM) 57 unit/L *HI* (12/07/14 11:20 PM) AST [0-37 unit/L] 96 unit/L (12/09/14 3:55 AM) 107 unit/L (12/08/14 7:54 PM) 104 unit/L (12/07/14 11:20 PM) Alk Phos [39-136 unit/L] 1.2 mg/dL (12/09/14 3:55 AM) 1.2 mg/dL (12/08/14 7:54 PM) 0.9 mg/dL (12/07/14 11:20 PM) Bili Total [0.2-1.3 mg/dL] 0.3 mg/dL (12/09/14 3:55 AM) Bili Direct [0.0-0.3 mg/dL] 0.9 mg/dL (12/09/14 3:55 AM) Bili Indirect [0.0-1.0 mg/dL] 105 unit/L (12/09/14 3:55 AM) Lipase Lvl [73-393 unit/L] 1Result Comment: The eGFR is calculated using [...] values reflect the clinical guidelines of the [place] [employer]. 5Interpretive Data: Adult reference range values reflect the clinical guidelines of the [place] [employer]. CARDIAC ENZYMES 1 2 3 Most recent to oldest [Reference Range]: 120 unit/L (12/08/14 9:48 AM) 131 unit/L (12/08/14 6:27 AM) 147 unit/L (12/07/14 11:20 PM) Total CK [12-191 unit/L] 1.8 ng/mL (12/08/14 9:48 AM) 1.9 ng/mL (12/08/14 6:27 AM) 1.3 ng/mL (12/07/14 11:20 PM) CK MB [0.5-3.6 ng/mL] 1.5 (12/08/14 9:48 AM) 1.5 (12/08/14 6:27 AM) 0.9 (12/07/14 11:20 PM) CK MB Index [0.0-2.5] <0.02 ng/mL (12/08/14 9:48 AM) <0.02 ng/mL (12/08/14 6:27 AM) <0.02 ng/mL (12/07/14 11:20 PM) Troponin-I [0.00-0.40 ng/mL] 17 pg/mL 6 (12/07/14 11:20 PM) BNP [<=100 pg/mL] 6Interpretive Data: Elevated results are in line with increasing severity of congestive heart failure. Minor elevations between 100 and 300 may be seen with Myocardial Ischemia, Sodium retaining drugs, and compensated/treated heart failure. LIPIDS 1 2 3 Most recent to oldest [Reference Range]: 1.54 *LOW* (12/08/14 9:48 AM) CHD Risk [4.00-7.30] 183 mg/dL (12/08/14 9:48 AM) Chol [<=199 mg/dL] 80 mg/dL (12/08/14 9:48 AM) Trig [<=149 mg/dL] 119 mg/dL (12/08/14 9:48 AM) HDL [>=61 mg/dL] 48 mg/dL (12/08/14 9:48 AM) LDL (Calculated) [<=99 mg/dL] 16 *NA* (12/08/14 9:48 AM) VLDL SPECIAL CHEMISTRY 1 2 3 Most recent to oldest [Reference Range]: 5.6 % (12/08/14 7:54 PM) Hgb A1C [<=5.6 %] THYROID PANEL 1 2 3 Most recent to oldest [Reference Range]: 37 % (12/08/14 9:48 AM) T3 Uptake [31-39 %] 7.4 ug/dl (12/08/14 9:48 AM) T4 [4.7-13.3 ug/dl] 2.7 *NA* (12/08/14 9:48 AM) FTI 2.020 uIU/mL (12/08/14 9:48 AM) TSH [0.360-3.740 uIU/mL] TOXICOLOGY 1 2 3 Most recent to oldest [Reference Range]: .204 % 7 *NA* (12/07/14 11:20 PM) Etoh (%) 204 mg/dL 8 *NA* (12/07/14 11:20 PM) Ethanol Lvl 7Interpretive Data: Ethanol testing results should be used for medical purposes only. Negative Range: <0.003% Toxic Range: >0.25% 8Interpretive Data: Negative Range: <3 mg/dL Toxic Range: >250 mg/dL HEMATOLOGY 1 2 3 Most recent to oldest [Reference Range]: 10.1 K/CMM (12/07/14 11:20 PM) WBC [3.7-10.4 K/CMM] 4.69 M/CMM *LOW* (12/07/14 11:20 PM) RBC [4.70-6.10 M/CMM] 14.7 g/dL (12/07/14 11:20 PM) Hgb [14.0-18.0 g/dL] 43.4 % (12/07/14 11:20 PM) Hct [42.0-54.0 %] 92.6 fL (12/07/14 11:20 PM) MCV [80.0-94.0 fL] 31.4 pg *HI* (12/07/14 11:20 PM) MCH [27.0-31.0 pg] 33.9 g/dL (12/07/14 11:20 PM) MCHC [32.0-36.0 g/dL] 14.2 % (12/07/14 11:20 PM) RDW [11.5-14.5 %] 196 K/CMM (12/08/14 9:48 AM) 198 K/CMM (12/07/14 11:20 PM) Platelet [133-450 K/CMM] 6.7 fL *LOW* (12/07/14 11:20 PM) MPV [7.4-10.4 fL] 80.9 % *HI* (12/07/14 11:20 PM) Segs [45.0-75.0 %] 10.4 % *LOW* (12/07/14 11:20 PM) Lymphocytes [20.0-40.0 %] 7.7 % (12/07/14 11:20 PM) Monocytes [2.0-12.0 %] 0.7 % (12/07/14 11:20 PM) Eosinophils [0.0-4.0 %] 0.3 % (12/07/14 11:20 PM) Basophils [0.0-1.0 %] 8.2 K/CMM *HI* (12/07/14 11:20 PM) Segs-Bands # [1.5-8.1 K/CMM] 1.1 K/CMM (12/07/14 11:20 PM) Lymphocytes # [1.0-5.5 K/CMM] 0.8 K/CMM (12/07/14 11:20 PM) Monocytes # [0.0-0.8 K/CMM] 0.1 K/CMM (12/07/14 11:20 PM) Eosinophils # [0.0-0.5 K/CMM] 26.7 seconds 9 (12/08/14 9:48 AM) PTT [22.9-35.8 seconds] 9Interpretive Data: Heparin Therapeutic Range: 57 - 92 Seconds Medications Administered During Your Visit No data available for this section Immunizations Vaccine Date Refusal Reason pneumococcal 23-valent vaccine 09/30/13 Social History Social History Type Response Alcohol Use: Current, Type: Beer, Frequency: 1-2 times per month, Previous treatment: None, Has alcohol use interfered with work or home life? No, Do you ever drink more than intended? No, Has anyone been hurt or at risk by your drinking? No, Ready to change: No, Concerns about alcohol use in household: No Smoking Status Former smoker, Type: Cigarettes, Lives with someone who smokes, Cigarette Smoking Last 365 Days No, Reg Smoking Cessation Counseling No
--- OUTSIDE RECORDS SUMMARY | 2018-12-03 10:18 | XMS REPORT | Summary of Care ---
Author Organization Unknown Address Unknown Phone Unavailable Encounter Dates Location Diagnoses Discharge Providers Disposition 12/21/2013 [facility] Final: Home [facility] 12/25/2013 [address] [place], [place] [address]- , [facility] Bronchitis with (Acute) Exacerbation Final: Unspecified Viral Hepatitis C without Hepatic Coma Final: Diabetes mellitus without mention of complication, type II or unspecified type, not stated as uncontrolled Final: Obesity, Unspecified Final: Body Mass Index 31.0-31.9, Adult Final: Personal History of Tobacco Use Final: Other Chronic Pain Final: Hypertensive Chronic Kidney Disease, Malignant, with Chronic Kidney Disease Stage I Through Stage IV, or Unspecified Final: Chronic Kidney Disease, Unspecified Final: Old Myocardial Infarction Final: Coronary Atherosclerosis of [place] Coronary Artery Final: First Degree Atrioventricula r Block Final: Other Premature Beats Final: Other Chronic Nonalcoholic Liver Disease 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 Final: Congestive Heart Failure, Unspecified Reason for Visit COPD EXACERBATION Vital Signs 1 2 3 Most recent to oldest [Reference Range]: 185.42 cm ([facility] Height 98.0 DegF (12/25/2013 12:00:00 [facility]) 98.1 DegF (12/25/2013 08:00:00 [facility]) 98.0 DegF (12/25/2013 04:21:00 [facility]) Temperature Oral [96.4-99.1 DegF] 137 mmHg (12/25/2013 12:00:00 [facility]) 157 mmHg *HI* (12/25/2013 08:00:00 [facility]) 148 mmHg *HI* (12/25/2013 04:21:00 [facility]) Systolic Blood Pressure [90-140 mmHg] 88 mmHg (12/25/2013 12:00:00 [facility]) 71 mmHg (12/25/2013 08:00:00 [facility]) 82 mmHg (12/25/2013 04:21:00 [facility]) Diastolic Blood Pressure [60-90 mmHg] 18 BRMIN (12/25/2013 12:00:00 [facility]) 18 BRMIN (12/25/2013 08:00:00 [facility]) 18 BRMIN (12/25/2013 06:43:00 [facility]) Respiratory Rate [14-20 BRMIN] 59 bpm *LOW* (12/25/2013 12:00:00 [facility]) 69 bpm (12/25/2013 08:00:00 [facility]) 67 bpm (12/25/2013 04:21:00 [facility]) Peripheral Pulse Rate [60-100 bpm] 98.182 kg (12/22/2013 05:33:00 [facility]) 106.818 kg (12/21/2013 22:27:00 [facility]) Weight 28.56 m2 (12/22/2013 05:33:00 [facility]) Body Mass Index Problem List Condition Effective Dates Status Health Status Informant Angina(Confirmed) Resolved Depression(Confirmed Resolved ) EMPHYSEMA(Confirmed) Active HTN - Resolved Hypertension(Confirm ed) Smoker(Confirmed) Active Allergies, Adverse Reactions, Alerts Status Substance Reaction Severity Active NKDA Medications Medication Instructions Start Date Stop Date Status acetaminophen-hydroc 1 tab, Route: PO, Drug Form: TAB, 12/22/2013 12/25/2013 Discontinued odone 325 mg-5 mg Dosing Weight 98.182, kg, Q4H, PRN oral tablet Pain Score 1-3, Start date: 12/22/13 5:41:00, Duration: 30 day, Stop date: 01/21/14 5:40:00 (Same as: [place] 325/5) Do not exceed 4gm/day of acetaminophen. albuterol 0.083% 2.49 mg, 3 mL, Route: NEB, Drug 12/22/2013 12/22/2013 Deleted inhalation solution form: SOLN, RQ3H, Start date: 12/22/13 7:00:00, Duration: 30 day, Stop date: 01/21/14 4:00:00 SEE RT DOCUMENTATION (Same as: Proventil) amLODIPine 5 mg, PO, QPM, 0 Refill(s) 12/22/2013 Ordered amLODIPine 5 mg, 1 tab, Route: PO, Drug form: 12/22/2013 12/25/2013 Discontinued TAB, QPM, Dosing Weight 98.182, kg, Start date: 12/22/13 17:00:00, Duration: 30 day, Stop date: 01/20/14 17:00:00 (Same as: Norvasc) aspirin 81 mg 81 mg, 1 tab, Route: PO, Drug form: 12/23/2013 12/25/2013 Discontinued tablet, enteric ECTAB, Daily, Dosing Weight 98.182, coated kg, Start date: 12/23/13 9:00:00, Duration: 30 day, Stop date: 01/21/14 9:00:00 Do not crush or chew.(Same As: Ecotrin) aspirin 81 mg 81 mg=1 tab, PO, Daily, # 0 tab, 0 12/22/2013 Ordered tablet, enteric Refill(s) coated atropine 0.5 mg, 5 mL, Route: IVP, Drug 12/22/2013 12/25/2013 Discontinued form: INJ, PRN, PRN Bradycardia, Start date: 12/22/13 5:39:00, Duration: 30 day, Stop date: 01/21/14 6:38:00 azithromycin 500 mg, Route: IVPB, ONCE, Dosing 12/22/2013 12/22/2013 Completed Weight 106.818, kg, Priority: STAT, Start date: 12/22/13 2:13:00, Stop date: 12/22/13 2:13:00 ciprofloxacin 500 mg 500 mg=1 tab, PO, Q12H, # 20 tab, 0 12/25/2013 01/04/2014 Ordered oral tablet Refill(s) citalopram 20 mg, 1 tab, Route: PO, Drug form: 12/23/2013 12/25/2013 Discontinued TAB, Daily, Dosing Weight 98.182, kg, Start date: 12/23/13 9:00:00, Duration: 30 day, Stop date: 01/21/14 9:00:00 (Same As: CeleXA) citalopram 20 mg 20 mg=1 tab, PO, Daily, # 30 tab, 0 12/22/2013 Ordered oral tablet Refill(s) DuoNeb inhalation 3 ml, Route: INHALATION, Drug Form: 12/22/2013 12/22/2013 Discontinued solution SOLN, Dosing Weight 106.818, kg, PRN, PRN Respiratory Protocol, STAT, Start date: 12/22/13 1:08:00, Duration: 30 day, Stop date: 01/21/14 2:07:00 (Same as: Duoneb) DuoNeb inhalation 3 ml, Route: INHALATION, Drug Form: 12/22/2013 12/22/2013 Completed solution SOLN, Dosing Weight 106.818, kg, PRN, PRN Respiratory Protocol, STAT, Start date: 12/22/13 1:08:00, Stop date: 12/22/13 2:07:00 (Same as: Duoneb) DuoNeb inhalation 3 ml, Route: INHALATION, Drug Form: 12/22/2013 12/22/2013 Completed solution SOLN, Dosing Weight 106.818, kg, ONCE, PRN Respiratory Protocol, STAT, Start date: 12/22/13 1:08:00, Stop date: 01/21/14 0:07:00 DuoNeb inhalation 3 mL, Route: INHALATION, Drug Form: 12/22/2013 12/22/2013 Discontinued solution SOLN, Dosing Weight 98.182, kg, Q4H, PRN as needed for shortness of breath or wheezing, Start date: 12/22/13 18:49:00, Duration: 30 day, Stop date: 01/21/14 18:48:00 (Same as: Duoneb) enoxaparin 40 mg, 0.4 mL, Route: SUB-Q, Drug 12/22/2013 12/25/2013 Discontinued form: INJ, [id number], Dosing Weight 98.182, kg, Start date: 12/22/13 15:00:00, Duration: 30 day, Stop date: 01/20/14 15:00:00 (Same as: Lovenox) furosemide 20 mg 20 mg=1 tab, PO, Daily-12N, # 30 12/22/2013 Ordered oral tablet tab, 0 Refill(s) furosemide 20 mg 20 mg, 1 tab, Route: PO, Drug form: 12/23/2013 12/25/2013 Discontinued oral tablet TAB, Daily-12N, Dosing Weight 98.182, kg, Start date: 12/23/13 12:00:00, Duration: 30 day, Stop date: 01/21/14 12:00:00 (Same as: Lasix) May cause GI upset. Give with food or milk. isosorbide 30 mg, 1 tab, Route: PO, Drug form: 12/23/2013 12/25/2013 Discontinued mononitrate ERTAB, QAM, Dosing Weight 98.182, kg, Start date: 12/23/13 9:00:00, Duration: 30 day, Stop date: 01/21/14 9:00:00 (Same as:Imdur)"Do Not Crush" Take on empty stomach/ full glass of water. Do not crush isosorbide 30 mg=1 tab, PO, QAM, # 30 tab, 0 12/22/2013 Ordered mononitrate 30 mg Refill(s) oral tablet, extended release Levaquin 750 mg, 150 mL, Route: IVPB, Drug 12/22/2013 12/25/2013 Discontinued form: JUAN A, [id number], Dosing Weight 98.182, kg, Start date: 12/22/13 19:00:00, Duration: 30 day, Stop date: 01/20/14 19:00:00 (Same as:Levaquin) Lopressor 50 mg, 1 tab, Route: PO, Drug form: 12/22/2013 12/25/2013 Discontinued TAB, Q12H, Dosing Weight 98.182, kg, Start date: 12/22/13 21:00:00, Duration: 30 day, Stop date: 01/21/14 9:00:00 (Same as: Lopressor) methylPREDNISolone 40 mg, 1 mL, Route: IV, Drug form: 12/24/2013 12/24/2013 Discontinued INJ, Daily, Dosing Weight 98.182, kg, Start date: 12/24/13 9:00:00, Duration: 30 day, Stop date: 01/22/14 9:00:00 (Same as:Solu-MEDROL, A-Methapred) methylPREDNISolone 60 mg, 1.5 mL, Route: IVP, Drug 12/22/2013 12/23/2013 Discontinued form: INJ, Q12H, Dosing Weight 98.182, kg, Start date: 12/22/13 21:00:00, Duration: 30 day, Stop date: 01/21/14 9:00:00 (Same as:Solu-MEDROL, A-Methapred) metoprolol tartrate 50 mg, Route: PO, Drug form: TAB, 12/22/2013 12/22/2013 Completed ONCE, Dosing Weight 106.818, kg, Priority: STAT, Start date: 12/22/13 2:12:00, Stop date: 12/22/13 2:12:00 metoprolol tartrate 50 mg=1 tab, PO, BID, # 180 tab, 0 12/22/2013 Ordered 50 mg oral tablet Refill(s) nitroglycerin 0.4 mg 0.4 mg, 1 tab, Route: SL, Drug 12/22/2013 12/25/2013 Discontinued sublingual tablet form: TAB, Q5Min, PRN Chest Pain, Start date: 12/22/13 5:39:00, Duration: 30 day, Stop date: 01/21/14 6:38:00 (Same as:Nitroquick, Nitrostat)"Do Not Crush" Sublingual tablet Nitrostat 0.4 mg 0.4 mg=1 tab, SL, Q5Min, Chest 12/22/2013 Ordered sublingual tablet Pain, # 100 tab, 0 Refill(s) NS 1,000 mL 1,000 mL, Rate: 125 ml/hr, Infuse 12/22/2013 12/25/2013 Discontinued over: 8 hr, Route: IV, Dosing Weight 106.818 kg, Total Volume: 1,000, Start date: 12/22/13 1:10:00, Duration: 30 day, Stop date: 01/21/14 1:09:00 NS 1000 mL 1,000 mL, Rate: 100 ml/hr, Infuse 12/22/2013 12/22/2013 Deleted over: 10 hr, Route: IV, Dosing Weight 106.818 kg, Total Volume: 1,000, Start date: 12/22/13 4:10:00, Duration: 30 day, Stop date: 01/21/14 4:09:00 ondansetron 4 mg, 2 mL, Route: IVP, Drug form: 12/22/2013 12/25/2013 Discontinued INJ, Q8H, Dosing Weight 98.182, kg, PRN Nausea & Vomiting, Start date: 12/22/13 5:41:00, Duration: 30 day, Stop date: 01/21/14 5:40:00 (Same as: Zofran) pravastatin 20 mg, 1 tab, Route: PO, Drug form: 12/22/2013 12/25/2013 Discontinued TAB, Bedtime, Dosing Weight 98.182, kg, Start date: 12/22/13 21:00:00, Duration: 30 day, Stop date: 01/20/14 21:00:00 (Same as: Pravachol) pravastatin 20 mg 20 mg=1 tab, PO, Bedtime, # 30 tab, 12/22/2013 Ordered oral tablet 0 Refill(s) predniSONE 40 mg, 2 tab, Route: PO, Drug form: 12/25/2013 12/25/2013 Discontinued TAB, Breakfast, Dosing Weight 98.182, kg, Start date: 12/25/13 8:00:00, Duration: 30 day, Stop date: 01/23/14 8:00:00 Take with food. predniSONE taper See Instructions, 20 tab, 12/25/2013 Ordered daily Substitution Allowed, 10 mg tablets, 4 tabs PO Daily X 2 Days, then 3 tabs PO Daily X 2 Days, then 2 tabs PO Daily X 2 days, then 1 tab PO Daily X 2 days 10 mg tablets, 4 tabs PO Daily X 2 Days, then 3 tabs PO Daily X 2 Days, then 2 tabs PO Daily X 2 days, then 1 tab PO Daily X 2 days Proventil HFAd 2 puff, INHALATION, Q4H, as needed 12/22/2013 Ordered for wheezing, 0 Refill(s) Solu-MEDROL 125 mg, Route: IVP, ONCE, Dosing 12/22/2013 12/22/2013 Completed Weight 106.818, kg, Priority: STAT, Start date: 12/22/13 1:09:00, Stop date: 12/22/13 1:09:00 Solu-MEDROL 60 mg, 1.5 mL, Route: IVP, Drug 12/23/2013 12/22/2013 Discontinued form: INJ, Q8H, Dosing Weight 98.182, kg, Start date: 12/23/13 0:00:00, Duration: 30 day, Stop date: 01/21/14 16:00:00 (Same as:Solu-MEDROL, A-Methapred) trazodone 100 mg 100 mg, 1 tab, Route: PO, Drug 12/22/2013 12/25/2013 Discontinued oral tablet form: TAB, Bedtime, Dosing Weight 98.182, kg, Start date: 12/22/13 21:00:00, Duration: 30 day, Stop date: 01/20/14 21:00:00 (Same As: Desyrel) trazodone 100 mg 100 mg=1 tab, PO, Bedtime, # 90 12/22/2013 Ordered oral tablet tab, 0 Refill(s) Xopenex 1.25 mg, 3 mL, Route: NEB, Drug 12/22/2013 12/25/2013 Discontinued form: SOLN, RQ4H, Dosing Weight 98.182, kg, Start date: 12/22/13 20:00:00, Duration: 30 day, Stop date: 01/21/14 19:00:00 SEE RT DOCUMENTATION (Same as:Xopenex)Non-Formulary Xopenex 1.25 mg, 3 mL, Route: NEB, Drug 12/22/2013 12/25/2013 Discontinued form: SOLN, PRN, Dosing Weight 98.182, kg, PRN Respiratory Protocol, Start date: 12/22/13 19:36:00, Duration: 30 day, Stop date: 01/21/14 20:35:00 SEE RT DOCUMENTATION (Same as:Xopenex)Non-Formulary Xopenex 1.25 mg, 3 mL, Route: NEB, Drug 12/22/2013 12/22/2013 Discontinued form: SOLN, RQ3H, Dosing Weight 106.818, kg, Start date: 12/22/13 5:00:00, Stop date: 01/21/14 4:00:00 SEE RT DOCUMENTATION (Same as:Xopenex)Non-Formulary Zithromax 500 mg, 250 mL, Route: IVPB, Drug 12/23/2013 12/25/2013 Discontinued form: PDR/INJ, Daily, Dosing Weight 98.182, kg, Start date: 12/23/13 9:00:00, Duration: 30 day, Stop date: 01/21/14 9:00:00 Same as: Zithromax Results ELECTROLYTES 1 2 3 Most recent to oldest [Reference Range]: 143 mEq/L (12/24/2013 04:54:00 [facility] 139 mEq/L (12/23/2013 [facility]:34:[facility] 139 mEq/L (12/22/2013 15:50:00 [facility]) Sodium Lvl [135-145 mEq/L] 4.0 mEq/L (12/24/2013 04:54:00 [facility]) 4.3 mEq/L (12/23/2013 03:34:00 [facility]) 4.1 mEq/L (12/22/2013 15:50:00 [facility]) Potassium Lvl [3.5-5.1 mEq/L] 109 mEq/L (12/24/2013 04:54:00 [facility]) 107 mEq/L (12/23/2013 03:34:00 [facility]) 105 mEq/L (12/22/2013 15:50:00 [facility]) Chloride Lvl [95-109 mEq/L] 27 mEq/L (12/24/2013 04:54:[facility] 23 mEq/L *LOW* (12/23/2013 03:34:00 [facility]) 19 mEq/L *LOW* (12/22/2013 15:50:00 [facility]) CO2 [24-32 mEq/L] 11.0 mEq/L (12/24/2013 04:54:00 [facility]) 13.3 mEq/L (12/23/2013 03:34:00 [facility] 19.1 mEq/L (12/22/2013 15:50:[facility] AGAP [10.0-20.0 mEq/L] CHEM PANEL 1 2 3 Most recent to oldest [Reference Range]: 1.1 mg/dL (12/24/2013 04:54:00 [facility] 1.0 mg/dL (12/23/2013 03:34:[facility] 1.1 mg/dL (12/22/2013 15:50:00 [facility]) Creatinine Lvl [0.5-1.4 mg/dL] 73 mL/min/1.73m2 1 *NA* (12/24/2013 04:54:[facility] 81 mL/min/1.73m2 2 *NA* (12/23/2013 03:34:00 [facility]) 73 mL/min/1.73m2 3 *NA* (12/22/2013 15:50:00 [facility]) eGFR 14 mg/dL (12/24/2013 04:54:00 [facility]) 14 mg/dL (12/23/2013 03:34:00 [facility]) 16 mg/dL (12/22/2013 15:50:00 [facility]) BUN [7-22 mg/dL] 14 (12/23/2013 03:34:00 [facility]) 16 (12/21/2013 23:00:00 [facility] B/C Ratio [6-25] 97 mg/dL 4 (12/24/2013 04:54:00 [facility]) 140 mg/dL 5 *HI* (12/23/2013 03:34:00 [facility]) 165 mg/dL 6 *HI* (12/22/2013 15:50:00 [facility]) Glucose Lvl [70-99 mg/dL] 6.6 g/dL (12/23/2013 03:34:00 [facility]) 7.3 g/dL (12/21/2013 23:00:00 [facility] Total Protein [6.4-8.4 g/dL] 3.2 g/dL *LOW* (12/23/2013 03:34:00 [facility]) 3.6 g/dL (12/21/2013 23:00:00 [facility]) Albumin Lvl [3.5-5.0 g/dL] 3.4 g/dL (12/23/2013 03:34:00 [facility]) 3.7 g/dL (12/21/2013 23:00:00 [facility]) Globulin [2.0-4.0 g/dL] 0.9 (12/23/2013 03:34:00 [facility]) 1.0 (12/21/2013 23:00:00 [facility]) A/G Ratio [0.7-1.6] 8.1 mg/dL *LOW* (12/24/2013 04:54:00 [facility]) 8.1 mg/dL *LOW* (12/23/2013 03:34:00 [facility]) 8.4 mg/dL *LOW* (12/22/2013 15:50:00 [facility]) Calcium Lvl [8.5-10.5 mg/dL] 3.7 mg/dL (12/22/2013 03:30:00 [facility] Phosphorus [2.5-4.5 mg/dL] 2.0 mg/dL (12/22/2013 03:30:00 [facility]) Magnesium Lvl [1.8-2.4 mg/dL] 27 unit/L (12/23/2013 03:34:00 [facility] 29 unit/L (12/21/2013 23:00:00 [facility]) ALT [0-65 unit/L] 15 unit/L (12/23/2013 [facility]:34:[facility] 20 unit/L (12/21/2013 23:00:00 [facility]) AST [0-37 unit/L] 66 unit/L (12/23/2013 03:34:00 [facility]) 73 unit/L (12/21/2013 23:00:00 [facility]) Alk Phos [39-136 unit/L] 0.6 mg/dL (12/23/2013 03:34:00 [facility]) 0.6 mg/dL (12/21/2013 23:00:00 [facility] Bili Total [0.2-1.3 mg/dL] 1Result Comment: The [...] values reflect the clinical guidelines of the [place] [employer]. 5Interpretive Data: Adult reference range values reflect the clinical guidelines of the [place] [employer]. 6Interpretive Data: Adult reference range values reflect the clinical guidelines of the [place] [employer]. CARDIAC ENZYMES 1 2 3 Most recent to oldest [Reference Range]: 179 unit/L (12/21/2013 23:00:00 [facility] Total CK [12-191 unit/L] 1.7 ng/mL (12/21/2013 23:00:00 [facility]) CK MB [0.5-3.6 ng/mL] 0.9 (12/21/2013 23:00:00 [facility]) CK MB Index [0.0-2.5] <0.02 ng/mL (12/21/2013 23:00:00 [facility]) Troponin-I [0.00-0.40 ng/mL] 81 pg/mL 7 (12/24/2013 04:54:00 [facility] 5 pg/mL 8 (12/21/2013 23:00:45 [facility]) BNP [<=100 pg/mL] 7Interpretive Data: Elevated results are in line with increasing severity of congestive heart failure. Minor elevations between 100 and 300 may be seen with Myocardial Ischemia, Sodium retaining drugs, and compensated/treated heart failure. 8Interpretive Data: Elevated results are in line with increasing severity of congestive heart failure. Minor elevations between 100 and 300 may be seen with Myocardial Ischemia, Sodium retaining drugs, and compensated/treated heart failure. LIPIDS 1 2 3 Most recent to oldest [Reference Range]: 2.08 *LOW* (12/23/2013 03:34:00 [facility] CHD Risk [4.00-7.30] 125 mg/dL (12/23/2013 [facility]:34[facility] Chol [<=199 mg/dL] 26 mg/dL (12/23/2013 03:34:00 [facility]) Trig [<=149 mg/dL] 60 mg/dL *LOW* (12/23/2013 03:34:00 [facility]) HDL [>=61 mg/dL] 60 mg/dL (12/23/2013 03:34:00 [facility]) LDL (Calculated) [<=99 mg/dL] IMMUNOLOGY 1 2 3 Most recent to oldest [Reference Range]: Negative (12/21/2013 23:00:59 [facility] CDC HIV 4th GEN [Negative] HEMATOLOGY 1 2 3 Most recent to oldest [Reference Range]: 13.3 K/CMM *HI* (12/24/2013 04:54:00 [facility]) 14.9 K/CMM *HI* (12/23/2013 [facility]:34:[facility] 13.8 K/CMM *HI* (12/22/2013 15:50:00 [facility] WBC [3.7-10.4 K/CMM] 3.60 M/CMM *LOW* (12/24/2013 04:54:00 [facility]) 3.87 M/CMM *LOW* (12/23/2013 03:34:[facility] 4.14 M/CMM *LOW* (12/22/2013 15:50:[facility] RBC [4.70-6.10 M/CMM] 11.4 g/dL *LOW* (12/24/2013 04:54:[facility] 12.3 g/dL *LOW* (12/23/2013 [facility]:34:[facility] 13.1 g/dL *LOW* (12/22/2013 15:50:00 [facility]) Hgb [14.0-18.0 g/dL] 33.9 % *LOW* (12/24/2013 04:54:[facility] 36.5 % *LOW* (12/23/2013 [facility]:34[facility] 38.9 % *LOW* (12/22/2013 15:50:00 [facility]) Hct [42.0-54.0 %] 94.2 fL *HI* (12/24/2013 04:54:00 [facility]) 94.3 fL *HI* (12/23/2013 03:34:00 [facility]) 93.8 fL (12/22/2013 15:50:00 [facility]) MCV [80.0-94.0 fL] 31.6 pg *HI* (12/24/2013 04:54:00 [facility]) 31.7 pg *HI* (12/23/2013 03:34:00 [facility]) 31.6 pg *HI* (12/22/2013 15:50:00 [facility]) MCH [27.0-31.0 pg] 33.6 g/dL (12/24/2013 04:54:00 [facility]) 33.6 g/dL (12/23/2013 [facility]34[facility] 33.7 g/dL (12/22/2013 15:50:00 [facility]) MCHC [32.0-36.0 g/dL] 13.6 % (12/24/2013 04:54:00 [facility]) 13.2 % (12/23/2013 03:34:00 [facility]) 13.3 % (12/22/2013 15:50:00 [facility]) RDW [11.5-14.5 %] 173 K/CMM (12/24/2013 04:54:00 [facility] 192 K/CMM (12/23/2013 03:34:00 [facility]) 215 K/CMM (12/22/2013 15:50:00 [facility]) Platelet [133-450 K/CMM] 8.3 fL (12/24/2013 04:54:00 [facility]) 8.3 fL (12/23/2013 03:34:00 [facility]) 8.4 fL (12/22/2013 15:50:00 [facility]) MPV [7.4-10.4 fL] 76.0 % *HI* (12/24/2013 04:54:00 [facility]) 93.7 % *HI* (12/23/2013 03:34:00 [facility]) 85.0 % *HI* (12/22/2013 15:50:00 [facility]) Segs [45.0-75.0 %] 4.0 % (12/22/2013 15:50:00 [facility]) Bands [0.0-11.0 %] 18.4 % *LOW* (12/24/2013 04:54:00 [facility]) 4.4 % *LOW* (12/23/2013 03:34:00 [facility]) 8.0 % *LOW* (12/22/2013 15:50:00 [facility]) Lymphocytes [20.0-40.0 %] 5.4 % (12/24/2013 04:54:00 [facility] 1.9 % *LOW* (12/23/2013 03:34:00 [facility]) 3.0 % (12/22/2013 15:50:00 [facility]) Monocytes [2.0-12.0 %] 0.0 % (12/24/2013 04:54:00 [facility]) 0.0 % (12/23/2013 03:34:00 [facility]) 0.0 % (12/22/2013 15:50:00 [facility]) Eosinophils [0.0-4.0 %] 0.2 % (12/24/2013 04:54:00 [facility]) 0.0 % (12/23/2013 03:34:00 [facility]) 0.0 % (12/22/2013 15:50:00 [facility]) Basophils [0.0-1.0 %] 10.1 K/CMM *HI* (12/24/2013 04:54:00 [facility]) 14.0 K/CMM *HI* (12/23/2013 03:34:00 [facility]) 12.8 K/CMM *HI* (12/22/2013 15:50:00 [facility]) Segs-Bands # [1.5-8.1 K/CMM] 2.4 K/CMM (12/24/2013 04:54:00 [facility]) 0.6 K/CMM *LOW* (12/23/2013 03:34:00 [facility]) 0.6 K/CMM *LOW* (12/22/2013 15:50:00 [facility]) Lymphocytes # [1.0-5.5 K/CMM] 0.7 K/CMM (12/24/2013 04:54:00 [facility]) 0.3 K/CMM (12/23/2013 03:34:00 [facility]) 0.4 K/CMM (12/22/2013 15:50:00 [facility]) Monocytes # [0.0-0.8 K/CMM] 0.0 K/CMM (12/24/2013 04:54:00 [facility]) 0.0 K/CMM (12/23/2013 03:34:00 [facility]) 0.0 K/CMM (12/22/2013 15:50:00 [facility]) Eosinophils # [0.0-0.5 K/CMM] 0.0 K/CMM (12/24/2013 04:54:00 [facility]) 0.0 K/CMM (12/23/2013 03:34:00 [facility]) 0.0 K/CMM (12/22/2013 15:50:00 [facility]) Basophils # [0.0-0.2 K/CMM] Normal (12/23/2013 03:34:00 [facility] RBC Morph Normal (12/23/2013 03:34:00 [facility]) Plt Morph 12.6 seconds [facility] [12.0-14.7 seconds] 0.95 9 (12/21/2013 23:00:00 [facility]) INR [0.85-1.17] 26.2 seconds 10 (12/22/2013 15:50:00 [facility]) 26.4 seconds 11 (12/21/2013 23:00:00 [facility]) PTT [22.9-35.8 seconds] 9Interpretive Data: RECOMMENDED RANGES FOR PROTIME INR: 2.0-3.0 for most medical and surgical thromboembolic states. 2.5-3.5 for artificial heart valves and recurrent embolism. INR SHOULD BE USED ONLY FOR PATIENTS ON STABLE ANTICOAGULANT THERAPY. 10Interpretive Data: Heparin Therapeutic Range: 57 - 92 Seconds 11Interpretive Data: Heparin Therapeutic Range: 57 - 92 Seconds Medications Administered During Your Visit No data available for this section Immunizations Vaccine Date Refusal Reason pneumococcal 23-valent vaccine 09/30/2013 Social History Social History Type Response Alcohol Current, Type Beer. Frequency: 1-2 times per month. Last use: 2 weeks ago. Started age 11 Years. Previous treatment: None. Alcohol use interferes with work or home: No. Drinks more than intended: No. Others hurt by drinking: No. Ready to change: No. Household alcohol concerns: No. Smoking Status Use: Former smoker. Type: Cigarettes. 10 per day. 33 year(s). Started age 12.0 Years. Tobacco smoke exposure: Lives with someone who smokes. Did the Patient Smoke Cigarettes Anytime During the Last 365 Days? No. Cessation Counseling Provided? No.
--- NOTE | 2018-12-03 13:30 | NUR ---
Received report from Belem TERAN. Reviewed medications given, orders, and procedural events. Patient laying flat with right leg straight. IV to left hand has normal saline 50ml/hr and appears to be without signs or symptoms of infiltration at this time. Patient awake, alert, and orientedx3. Respirations even and unlabored on room air. Patient verbalized understanding and had no questions regarding bedrest and to keep right leg straight.
--- NOTE | 2018-12-03 16:50 | NUR ---
Bed rest complete. Patient sitting up in stretcher. Dressing to right groin is clean,dry, and intact. Family at bedside.
--- NOTE | 2018-12-03 16:55 | NUR ---
Reviewed discharge instructions with patient and family. Reviewed discharge medication reconciliation, activity restrictions, follow-up appointments, and what signs and symptoms to look for when to call the doctor and when to call 911. CLosure device pamphlet handed to patient. Patient and family verbalized understanding and had no questions at this time.
--- NOTE | 2018-12-03 17:05 | NUR ---
IV to left hand removed and dressing applied per unit protocol. 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 Dressing to right groin is clean,dry, and intact at time of discharge. No distress noted at time of discharge.
--- NOTE | 2018-12-05 10:03 | Operative Report ---
DATE OF PROCEDURE: December 03, 2018 PROCEDURES PERFORMED 1. Left heart catheterization. 2. Selective coronary angiography. 3. Right radial transradial band hemostasis. PROCEDURE COMPLICATIONS: None. ESTIMATED BLOOD LOSS: Less than 5 mL. PROCEDURE SUMMARY: After consent was obtained, the patient was prepped and draped in a sterile fashion. The right radial site was locally infiltrated with 2% lidocaine. Access was obtained, and a 5-[place] outer diameter slender sheath was advanced. All catheters were railed in the proximal ascending aorta, although leading wire. [place] catheter was used for engaging the left main and then the right coronary artery, as well to cross the aortic valve for hemodynamic measurements. No left ventriculogram was performed. The following findings were observed: 1. LV pressure was 171/5 with end-diastolic pressure of 23. 2. The aortic pressure was 170/78. 3. No left ventriculogram was performed. 4. Left main is large in caliber with luminal irregularities giving an LAD and a circumflex. The proximal LAD has luminal irregularities throughout. Gives 3 diagonals and multiple short septal perforators. 5. The circumflex has luminal irregularities and gives 3 obtuse marginals, the first of which is medium in caliber. The other 2 are small in caliber. 6. The right coronary artery was 40% mid-tubular stenosis, and is a dominant vessel with a RPDA and RPLD. CONCLUSION: There is a mild to moderate obstructive coronary artery disease affecting predominately the right coronary artery. RECOMMENDATIONS: Medical aggressive therapy, including blood pressure control, aspirin and statin. Follow up in the office. Pushpa natarajan. Job#: [id number] [facility]
== END | disposition home or self-care (01) ==
LOC: CATH LAB 10:12
PROVIDERS: ATTEND Internal Medicine Cardiovascular Disease
DX: I25.10 Atherosclerotic heart disease of native coronary artery without angina pectoris (principal); I70.219 Atherosclerosis of native arteries of extremities with intermittent claudication, unspecified extremity; I10 Essential (primary) hypertension; E78.5 Hyperlipidemia, unspecified; I50.89 Other heart failure; J44.9 Chronic obstructive pulmonary disease, unspecified; R55 Syncope and collapse; Z01.810 Encounter for preprocedural cardiovascular examination; Z01.812 Encounter for preprocedural laboratory examination; Z79.82 Long term (current) use of aspirin; Z68.33 Body mass index [BMI] 33.0-33.9, adult; Z87.891 Personal history of nicotine dependence; Z82.49 Family history of ischemic heart disease and other diseases of the circulatory system
CPT/HCPCS: 36415; 80053; 80061; 83036; 85025; 85610; 85730; 93005; 93458; C1769; J2001; J2250; J7030; Q9967